=== PATIENT | female | born 1950 | race Caucasian/White ===

== ENCOUNTER 2019-09-25 18:17 | Inpatient (IN) | payer MEDICARE ==
[2019-09-25] MEDS ORDERED: Albuterol Nebulizer 2.5mg/3mL HHN PRN (23:03)
[2019-09-26] MEDS ORDERED: Pantoprazole 40 mg EC Tab PO SCH (09:00)
[2019-09-26] MEDS ORDERED: ESOMEPRAZOLE MAGNESIUM 20 MG PO SCH (09:00)
[2019-09-26] MEDS: Calcium Carb/Vit D 500 mg/200 U Tab PO SCH (17:26)
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
[2019-09-27] MEDS: Pantoprazole 40 mg EC Tab PO SCH (08:20)
[2019-09-27] MEDS: Calcium Carb/Vit D 500 mg/200 U Tab PO SCH ×2 (08:22→16:43)
[2019-09-27] MEDS: NYSTATIN 100000 UNITS/GM POWD TP SCH ×2 (09:36→16:51)
[2019-09-27] MEDS: Fluticasone Propionate Nasal 1 SPR SPR NS SCH (09:50)
--- NOTE | 2019-09-27 13:06 | Internal Medicine Prog Note ---
Internal Medicine Subjective - Subjective Patient seen and examined:: with staff, chart reviewed Patient is:: awake, verbal, interactive, in bed, denies any new complaints Patient Complaints of:: congestion Per staff patient has:: no adverse event, no episodes of fall, tolerating meds Internal Medicine Objective - Physical Exam Vitals and I&O: Vital Signs Temp 97.9 F 09/27/19 06:28 Pulse 98 09/27/19 06:28 Resp 20 09/27/19 06:28 BP 122/79 09/27/19 06:28 Pulse Ox 93 09/27/19 06:28 Intake & Output 09/26/19 09/27/19 09/27/19 18:59 06:59 18:59 Intake Total 900 160 Balance 900 160 Weight (lbs) 49.442 kg Intake: Oral 900 160 Other: # Voids 3 3 # Bowel Movements 1 0 Active Medications: Current Medications Acetaminophen (Tylenol) 650 mg PO Q4H PRN PRN Reason: Pain (Moderate 4-6) Stop: 11/25/19 14:38 Last Admin: 09/27/19 07:48 Dose: 650 mg Albuterol Sulfate (Albuterol 2.5mg/3ml Neb Ud) 2.5 mg HHN Q6HR PRN PRN Reason: Wheezing Stop: 11/24/19 23:02 Calcium Carbonate (Tums) 500 mg PO TID PRN PRN Reason: GI DISTRESS Stop: 11/25/19 20:59 Last Admin: 09/27/19 12:03 Dose: 500 mg Calcium/Vitamin D (Oscal W/Vitamin D) 1 tab PO BID [facility] Stop: 11/25/19 16:59 Last Admin: 09/27/19 08:22 Dose: 1 tab Fluticasone Propionate (Flonase) 2 spr NS DAILY EDDIE Stop: 11/26/19 08:59 Loratadine (Claritin) 10 mg PO DAILY EDDIE Stop: 11/25/19 08:59 Last Admin: 09/27/19 08:23 Dose: 10 mg Lorazepam (Ativan) 0.5 mg PO Q6HR PRN; Protocol PRN Reason: Agitation Stop: 11/24/19 23:02 Last Admin: 09/26/19 19:50 Dose: 0.5 mg Nystatin (Nystop) 100,000 units TP BID EDDIE Stop: 11/26/19 08:59 Last Admin: 09/27/19 09:36 Dose: 100,000 units Ondansetron HCl (Zofran Odt) 4 mg PO Q8HR PRN PRN Reason: Nausea Stop: 11/24/19 23:02 Last Admin: 09/26/19 10:45 Dose: 4 mg Pantoprazole Sodium (Protonix) 40 mg PO QDAC EDDIE Stop: 11/26/19 07:29 Last Admin: 09/27/19 08:20 Dose: 40 mg Paroxetine HCl (Paxil) 40 mg PO DAILY EDDIE; Protocol Stop: 11/25/19 08:59 Last Admin: 09/27/19 08:22 Dose: 40 mg Trazodone HCl (Desyrel) 100 mg PO HS EDDIE; Protocol Stop: 11/25/19 20:59 Last Admin: 09/26/19 21:50 Dose: 100 mg Zolpidem Tartrate (Ambien) 5 mg PO HS PRN PRN Reason: Insomnia Stop: 11/25/19 12:33 General: alert, obese HEENT: NC/AT, PERRLA, EOMI Neck: Supple, No JVD, No thyromegaly Lungs: CTAB Cardiovascular: RRR, Normal S1, Normal S2 Abdomen: soft, non-tender, globular, positive bowel sound Extremities: excoriation Neurological: no change Internal Medicine Assmt/Plan - Assessment Assessment: obesity gerd allergic rhinitis oa - Plan Plan: cont on adequate pain rx cont on ppi cont on histamine johanne cpm [facility]
[2019-09-27] MEDS: Menthol/Zinc Oxide Oint 113gm Tube TP PRN (16:52)
--- NOTE | 2019-09-28 00:10 | Progress Notes ---
DATE: 09/27/2019 PSYCHIATRIC PROGRESS NOTE SUBJECTIVE: Staff was spoken to. The patient is interviewed. Mood is noted to be depressed. Affect is constricted. The patient is isolative and withdrawn. The patient's insight and judgment are noted to be still impaired. Impulse control is noted to be limited. Coping skills are noted to be limited. The patient has been having difficult time to cope with the stress. No side effects to the medications are noted. The patient is currently on Paxil and has been able to tolerate the medication. ASSESSMENT: The patient is still depressed and suicidal. PLAN: To continue the patient with the current medications. I encouraged the patient to verbalize the concerns rather than to act out. [facility]# [id number]
[2019-09-28] MEDS: Pantoprazole 40 mg EC Tab PO SCH (06:51)
[2019-09-28] MEDS: Calcium Carb/Vit D 500 mg/200 U Tab PO SCH ×2 (08:57→16:11)
[2019-09-28] MEDS: NYSTATIN 100000 UNITS/GM POWD TP SCH ×2 (08:57→16:11)
[2019-09-28] MEDS: Fluticasone Propionate Nasal 1 SPR SPR NS SCH (08:58)
--- NOTE | 2019-09-28 15:54 | Internal Medicine Prog Note ---
Internal Medicine Subjective - Subjective Patient seen and examined:: with staff, chart reviewed Patient is:: awake, verbal, interactive, in bed, denies any new complaints Patient Complaints of:: congestion Per staff patient has:: no adverse event, no episodes of fall, tolerating meds Internal Medicine Objective - Physical Exam Vitals and I&O: Vital Signs Temp 97.8 F 09/28/19 15:17 Pulse 81 09/28/19 15:17 Resp 20 09/28/19 15:17 BP 137/75 09/28/19 15:17 Pulse Ox 94 09/28/19 15:17 Intake & Output 09/27/19 09/28/19 09/28/19 18:59 06:59 18:59 Intake Total 900 240 Balance 900 240 Intake: Oral 900 240 Other: # Voids 3 1 # Bowel Movements 1 Active Medications: Current Medications Acetaminophen (Tylenol) 650 mg PO Q4H PRN PRN Reason: Pain (Moderate 4-6) Stop: 11/25/19 14:38 Last Admin: 09/28/19 10:07 Dose: 650 mg Albuterol Sulfate (Albuterol 2.5mg/3ml Neb Ud) 2.5 mg HHN Q6HR PRN PRN Reason: Wheezing Stop: 11/24/19 23:02 Calamine/Phenol (Calmoseptine) 1 appl TP QID PRN PRN Reason: Skin Irritation Stop: 11/26/19 13:26 Last Admin: 09/27/19 16:52 Dose: 1 appl Calcium Carbonate (Tums) 500 mg PO TID PRN PRN Reason: GI DISTRESS Stop: 11/25/19 20:59 Last Admin: 09/27/19 12:03 Dose: 500 mg Calcium/Vitamin D (Oscal W/Vitamin D) 1 tab PO BID EDDIE Stop: 11/25/19 16:59 Last Admin: 09/28/19 08:57 Dose: 1 tab Fluticasone Propionate (Flonase) 2 spr NS DAILY EDDIE Stop: 11/26/19 08:59 Last Admin: 09/28/19 08:58 Dose: 2 spr Loratadine (Claritin) 10 mg PO DAILY EDDIE Stop: 11/25/19 08:59 Last Admin: 09/28/19 08:57 Dose: 10 mg Lorazepam (Ativan) 0.5 mg PO Q6HR PRN; Protocol PRN Reason: Agitation Stop: 11/24/19 23:02 Last Admin: 09/26/19 19:50 Dose: 0.5 mg Nystatin (Nystop) 100,000 units TP BID EDDIE Stop: 11/26/19 08:59 Last Admin: 09/28/19 08:57 Dose: 100,000 units Ondansetron HCl (Zofran Odt) 4 mg PO Q8HR PRN PRN Reason: Nausea Stop: 11/24/19 23:02 Last Admin: 09/26/19 10:45 Dose: 4 mg Pantoprazole Sodium (Protonix) 40 mg PO QDAC EDDIE Stop: 11/26/19 07:29 Last Admin: 09/28/19 06:51 Dose: 40 mg Paroxetine HCl (Paxil) 40 mg PO DAILY EDDIE; Protocol Stop: 11/25/19 08:59 Last Admin: 09/28/19 08:57 Dose: 40 mg Trazodone HCl (Desyrel) 100 mg PO HS EDDIE; Protocol Stop: 11/25/19 20:59 Last Admin: 09/27/19 22:10 Dose: 100 mg Zolpidem Tartrate (Ambien) 5 mg PO HS PRN PRN Reason: Insomnia Stop: 11/25/19 12:33 General: alert, obese HEENT: NC/AT, PERRLA, EOMI Neck: Supple, No JVD, No thyromegaly Lungs: CTAB Cardiovascular: RRR, Normal S1, Normal S2 Abdomen: soft, non-tender, globular, positive bowel sound Extremities: excoriation Neurological: no change Internal Medicine Assmt/Plan - Assessment Assessment: obesity gerd allergic rhinitis oa - Plan Plan: cont on adequate pain rx cont on ppi cont on histamine johanne cpm dw rn Nutritional Asmnt/Malnutr-PDOC - Dietary Evaluation Malnutrition Findings (Please click <Entered> for more info): Nutritional Asmnt/Malnutrition Start: 09/27/19 15: 12 Text: Status: Complete Freq: Protocol: Document 09/27/19 15:33 MAHIN (Rec: 09/27/19 15:35 MAHIN [id number]) Nutritional Asmnt/Malnutrition Patient General Information Nutritional Screening Low Risk Consult Diagnosis Psychosis Pertinent Medical Hx/Surgical Hx GERD, Allergic Rhinitis, Osteoarthritis, Asthma Subjective Information Consult: Intertrigo/Wound Gluteal Sulcus and Gluten Free Dietary Restrictions Pt is a 69-year-old female admitted on 09/25 d/t depression, suicidal ideations . Pt ate 100% meals 09/26. Visited pt around lunch and noticed she only drank her milk. Pt stated she was not hungry at lunch as she ate her breakfast late d/t medication issues and stomach upset. Pt stated she needed some antacids. Talked with pt regarding her dietary restrictions related to Gluten , she understood well, needed no further education. I informed her we made her some Gluten-Free sandwiches if she needed an extra snack between meals. Pt held conversation fine, stated she would eat when her stomach settled, she ate 75% breakfast. Per wound care note (09/27), Extrinsic factors that delay wound healing: Decreased mobility. Gluteal Sulcus Wound is not open, Intertrigo with erythema and moisture associated skin damage, present on admission. Open area has 100% dark pink tissue . Pt weight charted as 109 Lb, the pt looked heavier upon observation when I visited her today. Asked nurse to reweigh pt for accurate estimation of nutritional needs, pt refused, conscious of being overweight. I went in and spoke with pt, she stated she estimates she is around 190 Lbs based on most recent weight check. Will try to reweigh again when pt feels more comfortable. Anthropometrics (based on pt recollection) HT: 53 WT: 190 LB (86.36 kg) ABW: 135 LB (60.80 kg) BMI: 33.7 (Obese) GI/ Skin Integrity GI: WNL, Soft, Round BM: 09/26 x1 I/O: 1060/Not Noted Skin: Rash, Redness Ludwin: 20 Diet Order: Regular Allergy: Gluten Estimated Energy Needs: ( Geriatric, ABW) 9045-9295 kcals (20-25 kcals/ kg) 50-60g Pro (0.8-1.0 g/kg) 1677-6404 ml (20-25 ml/kg) Current Diet Order/ Nutrition Support Regular Patient / S.O Can Pertinent Medications Albuterol (PRN), tums, Oscal with Vitamin D, Zofran Odt ( PRN), Protonix Pertinent Labs 09/22: BUN/Cr 6/0.3, AST 32 Nutritional Hx/Data Height 1.6 m Height (Calculated Centimeters) 160.0 Current Weight (lbs) 86.183 kg Weight (Calculated Kilograms) 86.2 Weight (Calculated Grams) 38458.6 [place] Body Weight 115 LB (52.27 kg) % [place] Body Weight 165 Body Mass Index (BMI) 33.6 Weight Status Obese GI Symptoms Last BM 09/26 x1 Usual diet at home Regular Skin Integrity/Comment: Skin: Rash, Redness Ludwin: 20 Per wound care note (09/27), Extrinsic factors that delay wound healing: Decreased mobility. Gluteal Sulcus Wound is not open, Intertrigo with erythema and moisture associated skin damage, present on admission. Open area has 100% dark pink tissue . Current %PO Fair (50-74%) Estimated Nutritional Goals BEE in Kcals: Adj wt of IBW Calories/Kcals/Kg 20-25 Kcals Calculated 0635-7204 Protein: Adj wt of IBW Protein g/k.8-1.0 Protein Calculated 50-60 Fluid: ml 5313-4465 ml (20-25 ml/kg) Nutritional Problem 1. Problem Problem Obesity Etiology r/t consistent energy overconsumption Signs/Symptoms: aeb BMI 33.7 (pt recollection) . Malnutrition Related to Morbid Obesity Malnutrition related to morbid obesity No Intervention/Recommendation Comments Continue Regular diet as tolerated. Expected Outcomes/Goals Expected Outcomes/Goals 1.PO intake to meet 75% of estimated nutritional needs. 2.Monitor PO intake, wt, nutrition related labs, and skin integrity to trend WNL. 3.F/U as low risk in 7-10 days , 10/03-10/06
[2019-09-28] MEDS: Menthol/Zinc Oxide Oint 113gm Tube TP PRN (16:11)
--- NOTE | 2019-09-28 20:20 | Progress Notes ---
DATE: 09/28/2019 PSYCHIATRIC PROGRESS NOTE SUBJECTIVE: Staff was spoken to. The patient is interviewed. Mood is noted to be depressed. Affect is constricted. The patient's insight and judgment are noted to be improving. Impulse control seems to be fair. The patient, however, has been feeling frustrated. The patient is stating that she cannot deal with the depression. The patient has been having problem with the insomnia and is not able to tolerate the noise level. The patient's sleep is noted to be poor. Appetite is noted to be improving. No side effects to the medications are noted at this time. ASSESSMENT: The patient is still depressed. PLAN: To continue the patient with the supportive therapy, encouraged the patient to verbalize the concerns rather than to act out. The patient is going to be continued on her Paxil and Seroquel. JOB# [id number]
[2019-09-29] MEDS: Pantoprazole 40 mg EC Tab PO SCH (06:32)
[2019-09-29] MEDS: Calcium Carb/Vit D 500 mg/200 U Tab PO SCH ×2 (10:30→16:44)
[2019-09-29] MEDS: Fluticasone Propionate Nasal 1 SPR SPR NS SCH (10:31)
[2019-09-29] MEDS: NYSTATIN 100000 UNITS/GM POWD TP SCH ×2 (10:31→16:44)
--- NOTE | 2019-09-29 15:35 | Internal Medicine Prog Note ---
Internal Medicine Subjective - Subjective Patient seen and examined:: with staff, chart reviewed Patient is:: awake, verbal, interactive, in bed, denies any new complaints Patient Complaints of:: congestion Per staff patient has:: no adverse event, no episodes of fall, tolerating meds Internal Medicine Objective - Physical Exam Vitals and I&O: Vital Signs Temp 0 F 09/29/19 05:32 Pulse 78 09/28/19 20:31 Resp 16 09/29/19 08:00 BP 133/76 09/28/19 20:31 Pulse Ox 94 09/28/19 20:31 Intake & Output 09/28/19 09/29/19 09/29/19 18:59 06:59 18:59 Intake Total 900 120 Balance 900 120 Intake: Oral 900 120 Other: # Voids 3 3 # Bowel Movements 1 0 Active Medications: Current Medications Acetaminophen (Tylenol) 650 mg PO Q4H PRN PRN Reason: Pain (Moderate 4-6) Stop: 11/25/19 14:38 Last Admin: 09/28/19 10:07 Dose: 650 mg Albuterol Sulfate (Albuterol 2.5mg/3ml Neb Ud) 2.5 mg HHN Q6HR PRN PRN Reason: Wheezing Stop: 11/24/19 23:02 Calamine/Phenol (Calmoseptine) 1 appl TP QID PRN PRN Reason: Skin Irritation Stop: 11/26/19 13:26 Last Admin: 09/28/19 16:11 Dose: 1 appl Calcium Carbonate (Tums) 500 mg PO TID PRN PRN Reason: GI DISTRESS Stop: 11/25/19 20:59 Last Admin: 09/27/19 12:03 Dose: 500 mg Calcium/Vitamin D (Oscal W/Vitamin D) 1 tab PO BID EDDIE Stop: 11/25/19 16:59 Last Admin: 09/29/19 10:30 Dose: 1 tab Fluticasone Propionate (Flonase) 2 spr NS DAILY EDDIE Stop: 11/26/19 08:59 Last Admin: 09/29/19 10:31 Dose: 2 spr Loratadine (Claritin) 10 mg PO DAILY EDDIE Stop: 11/25/19 08:59 Last Admin: 09/29/19 10:29 Dose: 10 mg Lorazepam (Ativan) 0.5 mg PO Q6HR PRN; Protocol PRN Reason: Agitation Stop: 11/24/19 23:02 Last Admin: 09/28/19 21:31 Dose: 0.5 mg Nystatin (Nystop) 100,000 units TP BID EDDIE Stop: 11/26/19 08:59 Last Admin: 09/29/19 10:31 Dose: 100,000 units Ondansetron HCl (Zofran Odt) 4 mg PO Q8HR PRN PRN Reason: Nausea Stop: 11/24/19 23:02 Last Admin: 09/26/19 10:45 Dose: 4 mg Pantoprazole Sodium (Protonix) 40 mg PO QDAC EDDIE Stop: 11/26/19 07:29 Last Admin: 09/29/19 06:32 Dose: 40 mg Paroxetine HCl (Paxil) 40 mg PO DAILY EDDIE; Protocol Stop: 11/25/19 08:59 Last Admin: 09/29/19 10:29 Dose: 40 mg Trazodone HCl (Desyrel) 100 mg PO HS EDDIE; Protocol Stop: 11/25/19 20:59 Last Admin: 09/28/19 20:40 Dose: 100 mg Zolpidem Tartrate (Ambien) 5 mg PO HS PRN PRN Reason: Insomnia Stop: 11/25/19 12:33 General: alert, obese HEENT: NC/AT, PERRLA, EOMI Neck: Supple, No JVD, No thyromegaly Lungs: CTAB Cardiovascular: RRR, Normal S1, Normal S2 Abdomen: soft, non-tender, globular, positive bowel sound Extremities: excoriation Neurological: no change Internal Medicine Assmt/Plan - Assessment Assessment: obesity gerd allergic rhinitis oa - Plan Plan: cont on adequate pain rx cont on ppi cont on histamine johanne cpm dw rn Nutritional Asmnt/Malnutr-PDOC - Dietary Evaluation Malnutrition Findings (Please click <Entered> for more info): Nutritional Asmnt/Malnutrition Start: 09/27/19 15: 12 Text: Status: Complete Freq: Protocol: Document 09/27/19 15:33 MAHIN (Rec: 09/27/19 15:35 MAHIN [id number]) Nutritional Asmnt/Malnutrition Patient General Information Nutritional Screening Low Risk Consult Diagnosis Psychosis Pertinent Medical Hx/Surgical Hx GERD, Allergic Rhinitis, Osteoarthritis, Asthma Subjective Information Consult: Intertrigo/Wound Gluteal Sulcus and Gluten Free Dietary Restrictions Pt is a 69-year-old female admitted on 09/25 d/t depression, suicidal ideations . Pt ate 100% meals 09/26. Visited pt around lunch and noticed she only drank her milk. Pt stated she was not hungry at lunch as she ate her breakfast late d/t medication issues and stomach upset. Pt stated she needed some antacids. Talked with pt regarding her dietary restrictions related to Gluten , she understood well, needed no further education. I informed her we made her some Gluten-Free sandwiches if she needed an extra snack between meals. Pt held conversation fine, stated she would eat when her stomach settled, she ate 75% breakfast. Per wound care note (09/27), Extrinsic factors that delay wound healing: Decreased mobility. Gluteal Sulcus Wound is not open, Intertrigo with erythema and moisture associated skin damage, present on admission. Open area has 100% dark pink tissue . Pt weight charted as 109 Lb, the pt looked heavier upon observation when I visited her today. Asked nurse to reweigh pt for accurate estimation of nutritional needs, pt refused, conscious of being overweight. I went in and spoke with pt, she stated she estimates she is around 190 Lbs based on most recent weight check. Will try to reweigh again when pt feels more comfortable. Anthropometrics (based on pt recollection) HT: 53 WT: 190 LB (86.36 kg) ABW: 135 LB (60.80 kg) BMI: 33.7 (Obese) GI/ Skin Integrity GI: WNL, Soft, Round BM: 09/26 x1 I/O: 1060/Not Noted Skin: Rash, Redness Ludwin: 20 Diet Order: Regular Allergy: Gluten Estimated Energy Needs: ( Geriatric, ABW) 9220-1630 kcals (20-25 kcals/ kg) 50-60g Pro (0.8-1.0 g/kg) 1117-2577 ml (20-25 ml/kg) Current Diet Order/ Nutrition Support Regular Patient / S.O Can Pertinent Medications Albuterol (PRN), tums, Oscal with Vitamin D, Zofran Odt ( PRN), Protonix Pertinent Labs 09/22: BUN/Cr 6/0.3, AST 32 Nutritional Hx/Data Height 1.6 m Height (Calculated Centimeters) 160.0 Current Weight (lbs) 86.183 kg Weight (Calculated Kilograms) 86.2 Weight (Calculated Grams) 48479.6 [place] Body Weight 115 LB (52.27 kg) % [place] Body Weight 165 Body Mass Index (BMI) 33.6 Weight Status Obese GI Symptoms Last BM 09/26 x1 Usual diet at home Regular Skin Integrity/Comment: Skin: Rash, Redness Ludwin: 20 Per wound care note (09/27), Extrinsic factors that delay wound healing: Decreased mobility. Gluteal Sulcus Wound is not open, Intertrigo with erythema and moisture associated skin damage, present on admission. Open area has 100% dark pink tissue . Current %PO Fair (50-74%) Estimated Nutritional Goals BEE in Kcals: Adj wt of IBW Calories/Kcals/Kg 20-25 Kcals Calculated 7469-8697 Protein: Adj wt of IBW Protein g/k.8-1.0 Protein Calculated 50-60 Fluid: ml 0811-3792 ml (20-25 ml/kg) Nutritional Problem 1. Problem Problem Obesity Etiology r/t consistent energy overconsumption Signs/Symptoms: aeb BMI 33.7 (pt recollection) . Malnutrition Related to Morbid Obesity Malnutrition related to morbid obesity No Intervention/Recommendation Comments Continue Regular diet as tolerated. Expected Outcomes/Goals Expected Outcomes/Goals 1.PO intake to meet 75% of estimated nutritional needs. 2.Monitor PO intake, wt, nutrition related labs, and skin integrity to trend WNL. 3.F/U as low risk in 7-10 days , 10/03-10/06
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
[2019-09-30] MEDS: Pantoprazole 40 mg EC Tab PO SCH (06:51)
[2019-09-30] MEDS: Fluticasone Propionate Nasal 1 SPR SPR NS SCH (09:01)
[2019-09-30] MEDS: Calcium Carb/Vit D 500 mg/200 U Tab PO SCH ×2 (09:01→17:33)
[2019-09-30] MEDS: Menthol/Zinc Oxide Oint 113gm Tube TP PRN (09:01)
[2019-09-30] MEDS: NYSTATIN 100000 UNITS/GM POWD TP SCH ×2 (09:02→17:33)
--- NOTE | 2019-09-30 13:05 | Internal Medicine Prog Note ---
Internal Medicine Subjective - Subjective Patient seen and examined:: with staff, chart reviewed Patient is:: awake, verbal, interactive, in bed, denies any new complaints Patient Complaints of:: congestion Per staff patient has:: no adverse event, no episodes of fall, tolerating meds Internal Medicine Objective - Physical Exam Vitals and I&O: Vital Signs Temp 97.9 F 09/29/19 20:00 Pulse 76 09/29/19 20:00 Resp 16 09/29/19 20:00 BP 129/75 09/29/19 20:00 Pulse Ox 92 09/29/19 20:00 Intake & Output 09/29/19 09/30/19 09/30/19 18:59 06:59 18:59 Intake Total 900 160 Balance 900 160 Intake: Oral 900 160 Other: # Voids 3 2 # Bowel Movements 1 0 Active Medications: Current Medications Acetaminophen (Tylenol) 650 mg PO Q4H PRN PRN Reason: Pain (Moderate 4-6) Stop: 11/25/19 14:38 Last Admin: 09/29/19 16:58 Dose: 650 mg Albuterol Sulfate (Albuterol 2.5mg/3ml Neb Ud) 2.5 mg HHN Q6HR PRN PRN Reason: Wheezing Stop: 11/24/19 23:02 Calamine/Phenol (Calmoseptine) 1 appl TP QID PRN PRN Reason: Skin Irritation Stop: 11/26/19 13:26 Last Admin: 09/30/19 09:01 Dose: 1 appl Calcium Carbonate (Tums) 500 mg PO TID PRN PRN Reason: GI DISTRESS Stop: 11/25/19 20:59 Last Admin: 09/27/19 12:03 Dose: 500 mg Calcium/Vitamin D (Oscal W/Vitamin D) 1 tab PO BID EDDIE Stop: 11/25/19 16:59 Last Admin: 09/30/19 09:01 Dose: 1 tab Fluticasone Propionate (Flonase) 2 spr NS DAILY EDDIE Stop: 11/26/19 08:59 Last Admin: 09/30/19 09:01 Dose: 2 spr Loratadine (Claritin) 10 mg PO DAILY EDDIE Stop: 11/25/19 08:59 Last Admin: 09/30/19 09:01 Dose: 10 mg Lorazepam (Ativan) 0.5 mg PO Q6HR PRN; Protocol PRN Reason: Agitation Stop: 11/24/19 23:02 Last Admin: 09/29/19 16:58 Dose: 0.5 mg Nystatin (Nystop) 100,000 units TP BID EDDIE Stop: 11/26/19 08:59 Last Admin: 09/30/19 09:02 Dose: 100,000 units Ondansetron HCl (Zofran Odt) 4 mg PO Q8HR PRN PRN Reason: Nausea Stop: 11/24/19 23:02 Last Admin: 09/26/19 10:45 Dose: 4 mg Pantoprazole Sodium (Protonix) 40 mg PO QDAC EDDIE Stop: 11/26/19 07:29 Last Admin: 09/30/19 06:51 Dose: 40 mg Paroxetine HCl (Paxil) 40 mg PO DAILY [facility]; Protocol Stop: 11/25/19 08:59 Last Admin: 09/30/19 09:01 Dose: 40 mg Trazodone HCl (Desyrel) 100 mg PO HS EDDIE; Protocol Stop: 11/25/19 20:59 Last Admin: 09/29/19 21:44 Dose: 100 mg Zolpidem Tartrate (Ambien) 5 mg PO HS PRN PRN Reason: Insomnia Stop: 11/25/19 12:33 General: alert, obese HEENT: NC/AT, PERRLA, EOMI Neck: Supple, No JVD, No thyromegaly Lungs: CTAB Cardiovascular: RRR, Normal S1, Normal S2 Abdomen: soft, non-tender, globular, positive bowel sound Extremities: excoriation Neurological: no change Internal Medicine Assmt/Plan - Assessment Assessment: obesity gerd allergic rhinitis oa - Plan Plan: cont on adequate pain rx cont on ppi cont on histamine johanne cpm dw rn Nutritional Asmnt/Malnutr-PDOC - Dietary Evaluation Malnutrition Findings (Please click <Entered> for more info): Nutritional Asmnt/Malnutrition Start: 09/27/19 15: 12 Text: Status: Complete Freq: Protocol: Document 09/27/19 15:33 MAHIN (Rec: 09/27/19 15:35 [email or web address] [id number]) Nutritional Asmnt/Malnutrition Patient General Information Nutritional Screening Low Risk Consult Diagnosis Psychosis Pertinent Medical Hx/Surgical Hx GERD, Allergic Rhinitis, Osteoarthritis, Asthma Subjective Information Consult: Intertrigo/Wound Gluteal Sulcus and Gluten Free Dietary Restrictions Pt is a 69-year-old female admitted on 09/25 d/t depression, suicidal ideations . Pt ate 100% meals 09/26. Visited pt around lunch and noticed she only drank her milk. Pt stated she was not hungry at lunch as she ate her breakfast late d/t medication issues and stomach upset. Pt stated she needed some antacids. Talked with pt regarding her dietary restrictions related to Gluten , she understood well, needed no further education. I informed her we made her some Gluten-Free sandwiches if she needed an extra snack between meals. Pt held conversation fine, stated she would eat when her stomach settled, she ate 75% breakfast. Per wound care note (09/27), Extrinsic factors that delay wound healing: Decreased mobility. Gluteal Sulcus Wound is not open, Intertrigo with erythema and moisture associated skin damage, present on admission. Open area has 100% dark pink tissue . Pt weight charted as 109 Lb, the pt looked heavier upon observation when I visited her today. Asked nurse to reweigh pt for accurate estimation of nutritional needs, pt refused, conscious of being overweight. I went in and spoke with pt, she stated she estimates she is around 190 Lbs based on most recent weight check. Will try to reweigh again when pt feels more comfortable. Anthropometrics (based on pt recollection) HT: 53 WT: 190 LB (86.36 kg) ABW: 135 LB (60.80 kg) BMI: 33.7 (Obese) GI/ Skin Integrity GI: WNL, Soft, Round BM: 09/26 x1 I/O: 1060/Not Noted Skin: Rash, Redness Ludwin: 20 Diet Order: Regular Allergy: Gluten Estimated Energy Needs: ( Geriatric, ABW) 5546-1087 kcals (20-25 kcals/ kg) 50-60g Pro (0.8-1.0 g/kg) 2054-5475 ml (20-25 ml/kg) Current Diet Order/ Nutrition Support Regular Patient / S.O Can Pertinent Medications Albuterol (PRN), tums, Oscal with Vitamin D, Zofran Odt ( PRN), Protonix Pertinent Labs 09/22: BUN/Cr 6/0.3, AST 32 Nutritional Hx/Data Height 1.6 m Height (Calculated Centimeters) 160.0 Current Weight (lbs) 86.183 kg Weight (Calculated Kilograms) 86.2 Weight (Calculated Grams) 71029.6 [place] Body Weight 115 LB (52.27 kg) % [place] Body Weight 165 Body Mass Index (BMI) 33.6 Weight Status Obese GI Symptoms Last BM 09/26 x1 Usual diet at home Regular Skin Integrity/Comment: Skin: Rash, Redness Ludwin: 20 Per wound care note (09/27), Extrinsic factors that delay wound healing: Decreased mobility. Gluteal Sulcus Wound is not open, Intertrigo with erythema and moisture associated skin damage, present on admission. Open area has 100% dark pink tissue . Current %PO Fair (50-74%) Estimated Nutritional Goals BEE in Kcals: Adj wt of IBW Calories/Kcals/Kg 20-25 Kcals Calculated 6963-2177 Protein: Adj wt of IBW Protein g/k.8-1.0 Protein Calculated 50-60 Fluid: ml 6803-6145 ml (20-25 ml/kg) Nutritional Problem 1. Problem Problem Obesity Etiology r/t consistent energy overconsumption Signs/Symptoms: aeb BMI 33.7 (pt recollection) . Malnutrition Related to Morbid Obesity Malnutrition related to morbid obesity No Intervention/Recommendation Comments Continue Regular diet as tolerated. Expected Outcomes/Goals Expected Outcomes/Goals 1.PO intake to meet 75% of estimated nutritional needs. 2.Monitor PO intake, wt, nutrition related labs, and skin integrity to trend WNL. 3.F/U as low risk in 7-10 days , 10/03-10/06
--- NOTE | 2019-10-01 03:33 | Progress Notes ---
DATE: 09/30/2019 SUBJECTIVE: Staff was spoken to. The patient is interviewed. Mood is noted to be irritable. Affect is constricted. The patient is still isolative and withdrawn. The patient is stating that she is frustrated with the noise level and the noise is making her to have PTSD. The patient is stating that she does not like the light when she is sleeping and that the other people are putting it on. The patient has been having difficult time to cope with the stress. Insight and judgment at this time are noted to be still impaired. Coping skills are noted to be very poor. The patient have been concerns with regards to trazodone and Ambien and the patient is currently on 100 mg of the trazodone. Plan to continue the same and discontinue the Ambien. The patient has been stating that she needs to be in a single room and she wants closer to [place]. ASSESSMENT: The patient is still depressed, suicidal ideation is resolving. PLAN: To continue the patient with the supportive therapy, encouraged the patient to verbalize the concerns rather than to act out. JOB# [id number]
[2019-10-01] MEDS: Pantoprazole 40 mg EC Tab PO SCH (06:48)
[2019-10-01] MEDS: NYSTATIN 100000 UNITS/GM POWD TP SCH ×2 (09:46→17:12)
[2019-10-01] MEDS: Fluticasone Propionate Nasal 1 SPR SPR NS SCH (09:46)
[2019-10-01] MEDS: Calcium Carb/Vit D 500 mg/200 U Tab PO SCH ×2 (09:46→17:12)
--- NOTE | 2019-10-01 14:53 | Internal Medicine Prog Note ---
Internal Medicine Subjective - Subjective Patient seen and examined:: with staff, chart reviewed Patient is:: awake, verbal, interactive, in bed, denies any new complaints Patient Complaints of:: congestion Per staff patient has:: no adverse event, no episodes of fall, tolerating meds Internal Medicine Objective - Physical Exam Vitals and I&O: Vital Signs Temp 97.2 F 10/01/19 14:00 Pulse 79 10/01/19 14:00 Resp 20 10/01/19 14:00 BP 130/78 10/01/19 14:00 Pulse Ox 94 10/01/19 14:00 Intake & Output 09/30/19 10/01/19 10/01/19 18:59 06:59 18:59 Intake Total 1200 120 Balance 1200 120 Intake: Oral 1200 120 Other: # Voids 4 2 # Bowel Movements 1 Active Medications: Current Medications Acetaminophen (Tylenol) 650 mg PO Q4H PRN PRN Reason: Pain (Moderate 4-6) Stop: 11/25/19 14:38 Last Admin: 09/30/19 14:39 Dose: 650 mg Albuterol Sulfate (Albuterol 2.5mg/3ml Neb Ud) 2.5 mg HHN Q6HR PRN PRN Reason: Wheezing Stop: 11/24/19 23:02 Calamine/Phenol (Calmoseptine) 1 appl TP QID PRN PRN Reason: Skin Irritation Stop: 11/26/19 13:26 Last Admin: 09/30/19 09:01 Dose: 1 appl Calcium Carbonate (Tums) 500 mg PO TID PRN PRN Reason: GI DISTRESS Stop: 11/25/19 20:59 Last Admin: 09/27/19 12:03 Dose: 500 mg Calcium/Vitamin D (Oscal W/Vitamin D) 1 tab PO BID EDDIE Stop: 11/25/19 16:59 Last Admin: 10/01/19 09:46 Dose: 1 tab Fluticasone Propionate (Flonase) 2 spr NS DAILY EDDIE Stop: 11/26/19 08:59 Last Admin: 10/01/19 09:46 Dose: 2 spr Hydrocortisone (Hydrocortisone 1%) 1 appl TP DAILY EDDIE Stop: 11/30/19 08:59 Last Admin: 10/01/19 09:46 Dose: 1 appl Loratadine (Claritin) 10 mg PO DAILY EDDIE Stop: 11/25/19 08:59 Last Admin: 10/01/19 09:47 Dose: 10 mg Lorazepam (Ativan) 0.5 mg PO Q6HR PRN; Protocol PRN Reason: Agitation Stop: 11/24/19 23:02 Last Admin: 09/29/19 16:58 Dose: 0.5 mg Nystatin (Nystop) 100,000 units TP BID EDDIE Stop: 11/26/19 08:59 Last Admin: 10/01/19 09:46 Dose: 100,000 units Ondansetron HCl (Zofran Odt) 4 mg PO Q8HR PRN PRN Reason: Nausea Stop: 11/24/19 23:02 Last Admin: 10/01/19 09:58 Dose: 4 mg Pantoprazole Sodium (Protonix) 40 mg PO QDAC EDDIE Stop: 11/26/19 07:29 Last Admin: 10/01/19 06:48 Dose: 40 mg Paroxetine HCl (Paxil) 40 mg PO DAILY EDDIE; Protocol Stop: 11/25/19 08:59 Last Admin: 10/01/19 09:46 Dose: 40 mg Trazodone HCl (Desyrel) 100 mg PO HS EDDIE; Protocol Stop: 11/25/19 20:59 Last Admin: 09/30/19 21:59 Dose: 100 mg General: alert, obese HEENT: NC/AT, PERRLA, EOMI Neck: Supple, No JVD, No thyromegaly Lungs: CTAB Cardiovascular: RRR, Normal S1, Normal S2 Abdomen: soft, non-tender, globular, positive bowel sound Extremities: excoriation Neurological: no change Internal Medicine Assmt/Plan - Assessment Assessment: obesity gerd allergic rhinitis oa - Plan Plan: cont on adequate pain rx cont on ppi cont on histamine johanne cpm dw rn Nutritional Asmnt/Malnutr-PDOC - Dietary Evaluation Malnutrition Findings (Please click <Entered> for more info): Nutritional Asmnt/Malnutrition Start: 09/27/19 15: 12 Text: Status: Complete Freq: Protocol: Document 09/27/19 15:33 [email or web address] (Rec: 09/27/19 15:35 [email or web address] [id number]) Nutritional Asmnt/Malnutrition Patient General Information Nutritional Screening Low Risk Consult Diagnosis Psychosis Pertinent Medical Hx/Surgical Hx GERD, Allergic Rhinitis, Osteoarthritis, Asthma Subjective Information Consult: Intertrigo/Wound Gluteal Sulcus and Gluten Free Dietary Restrictions Pt is a 69-year-old female admitted on 09/25 d/t depression, suicidal ideations . Pt ate 100% meals 09/26. Visited pt around lunch and noticed she only drank her milk. Pt stated she was not hungry at lunch as she ate her breakfast late d/t medication issues and stomach upset. Pt stated she needed some antacids. Talked with pt regarding her dietary restrictions related to Gluten , she understood well, needed no further education. I informed her we made her some Gluten-Free sandwiches if she needed an extra snack between meals. Pt held conversation fine, stated she would eat when her stomach settled, she ate 75% breakfast. Per wound care note (09/27), Extrinsic factors that delay wound healing: Decreased mobility. Gluteal Sulcus Wound is not open, Intertrigo with erythema and moisture associated skin damage, present on admission. Open area has 100% dark pink tissue . Pt weight charted as 109 Lb, the pt looked heavier upon observation when I visited her today. Asked nurse to reweigh pt for accurate estimation of nutritional needs, pt refused, conscious of being overweight. I went in and spoke with pt, she stated she estimates she is around 190 Lbs based on most recent weight check. Will try to reweigh again when pt feels more comfortable. Anthropometrics (based on pt recollection) HT: 53 WT: 190 LB (86.36 kg) ABW: 135 LB (60.80 kg) BMI: 33.7 (Obese) GI/ Skin Integrity GI: WNL, Soft, Round BM: 09/26 x1 I/O: 1060/Not Noted Skin: Rash, Redness Ludwin: 20 Diet Order: Regular Allergy: Gluten Estimated Energy Needs: ( Geriatric, ABW) 1049-4691 kcals (20-25 kcals/ kg) 50-60g Pro (0.8-1.0 g/kg) 7121-8817 ml (20-25 ml/kg) Current Diet Order/ Nutrition Support Regular Patient / S.O Can Pertinent Medications Albuterol (PRN), tums, Oscal with Vitamin D, Zofran Odt ( PRN), Protonix Pertinent Labs 09/22: BUN/Cr 6/0.3, AST 32 Nutritional Hx/Data Height 1.6 m Height (Calculated Centimeters) 160.0 Current Weight (lbs) 86.183 kg Weight (Calculated Kilograms) 86.2 Weight (Calculated Grams) 61334.6 [place] Body Weight 115 LB (52.27 kg) % [place] Body Weight 165 Body Mass Index (BMI) 33.6 Weight Status Obese GI Symptoms Last BM 09/26 x1 Usual diet at home Regular Skin Integrity/Comment: Skin: Rash, Redness Ludwin: 20 Per wound care note (09/27), Extrinsic factors that delay wound healing: Decreased mobility. Gluteal Sulcus Wound is not open, Intertrigo with erythema and moisture associated skin damage, present on admission. Open area has 100% dark pink tissue . Current %PO Fair (50-74%) Estimated Nutritional Goals BEE in Kcals: Adj wt of IBW Calories/Kcals/Kg 20-25 Kcals Calculated 0245-1891 Protein: Adj wt of IBW Protein g/k.8-1.0 Protein Calculated 50-60 Fluid: ml 2931-0778 ml (20-25 ml/kg) Nutritional Problem 1. Problem Problem Obesity Etiology r/t consistent energy overconsumption Signs/Symptoms: aeb BMI 33.7 (pt recollection) . Malnutrition Related to Morbid Obesity Malnutrition related to morbid obesity No Intervention/Recommendation Comments Continue Regular diet as tolerated. Expected Outcomes/Goals Expected Outcomes/Goals 1.PO intake to meet 75% of estimated nutritional needs. 2.Monitor PO intake, wt, nutrition related labs, and skin integrity to trend WNL. 3.F/U as low risk in 7-10 days , 10/03-10/06
[2019-10-02] MEDS: Pantoprazole 40 mg EC Tab PO SCH (06:52)
--- NOTE | 2019-10-02 08:53 | Progress Notes ---
DATE: 10/01/2019 SUBJECTIVE: Staff was spoken to. The patient is interviewed. Mood is noted to be irritable. Affect is constricted. The patient is still isolative and withdrawn. The patient is stating that she is still having the PTSD symptoms and having depression. Coping skills at this time are noted to be still poor. The patient's sleep is noted to be a little bit improving compared to the other days. The patient is stating that she was able to sleep a little bit last night. The patient is stating that the noises of one that she could not tolerate. The patient has been so far compliant with the Paxil and Seroquel. No side effects to the medications are noted. The patient has been able to verbalize the concerns, but the patient's participation in the groups seems to be minimal. ASSESSMENT: The patient is still depressed. PLAN: To continue the patient with the supportive therapy, I encouraged the patient to verbalize the concerns rather than to act out. [facility]# [id number]
[2019-10-02] MEDS: Calcium Carb/Vit D 500 mg/200 U Tab PO SCH ×2 (09:30→17:12)
[2019-10-02] MEDS: Fluticasone Propionate Nasal 1 SPR SPR NS SCH (09:30)
[2019-10-02] MEDS: NYSTATIN 100000 UNITS/GM POWD TP SCH ×2 (09:30→17:12)
--- NOTE | 2019-10-02 09:49 | Internal Medicine Prog Note ---
Internal Medicine Subjective - Subjective Patient seen and examined:: with staff, chart reviewed Patient is:: awake, verbal, interactive, in bed, denies any new complaints Patient Complaints of:: congestion Per staff patient has:: no adverse event, no episodes of fall, tolerating meds Internal Medicine Objective - Physical Exam Vitals and I&O: Vital Signs Temp 97.9 F 10/01/19 20:05 Pulse 76 10/01/19 20:05 Resp 20 10/01/19 20:05 BP 130/73 10/01/19 20:05 Pulse Ox 92 10/01/19 20:05 Intake & Output 10/01/19 10/02/19 10/02/19 18:59 06:59 18:59 Intake Total 220 Balance 220 Intake: Oral 220 Other: # Voids 1 # Bowel Movements 0 Active Medications: Current Medications Acetaminophen (Tylenol) 650 mg PO Q4H PRN PRN Reason: Pain (Moderate 4-6) Stop: 11/25/19 14:38 Last Admin: 10/01/19 15:27 Dose: 650 mg Albuterol Sulfate (Albuterol 2.5mg/3ml Neb Ud) 2.5 mg HHN Q6HR PRN PRN Reason: Wheezing Stop: 11/24/19 23:02 Calamine/Phenol (Calmoseptine) 1 appl TP QID PRN PRN Reason: Skin Irritation Stop: 11/26/19 13:26 Last Admin: 09/30/19 09:01 Dose: 1 appl Calcium Carbonate (Tums) 500 mg PO TID PRN PRN Reason: GI DISTRESS Stop: 11/25/19 20:59 Last Admin: 09/27/19 12:03 Dose: 500 mg Calcium/Vitamin D (Oscal W/Vitamin D) 1 tab PO BID EDDIE Stop: 11/25/19 16:59 Last Admin: 10/02/19 09:30 Dose: 1 tab Fluticasone Propionate (Flonase) 2 spr NS DAILY EDDIE Stop: 11/26/19 08:59 Last Admin: 10/02/19 09:30 Dose: 2 spr Hydrocortisone (Hydrocortisone 1%) 1 appl TP DAILY EDDIE Stop: 11/30/19 08:59 Last Admin: 10/02/19 09:30 Dose: 1 appl Loratadine (Claritin) 10 mg PO DAILY EDDIE Stop: 11/25/19 08:59 Last Admin: 10/02/19 09:30 Dose: 10 mg Lorazepam (Ativan) 0.5 mg PO Q6HR PRN; Protocol PRN Reason: Agitation Stop: 11/24/19 23:02 Last Admin: 09/29/19 16:58 Dose: 0.5 mg Nystatin (Nystop) 100,000 units TP BID EDDIE Stop: 11/26/19 08:59 Last Admin: 10/02/19 09:30 Dose: 100,000 units Ondansetron HCl (Zofran Odt) 4 mg PO Q8HR PRN PRN Reason: Nausea Stop: 11/24/19 23:02 Last Admin: 10/01/19 09:58 Dose: 4 mg Pantoprazole Sodium (Protonix) 40 mg PO QDAC EDDIE Stop: 11/26/19 07:29 Last Admin: 10/02/19 06:52 Dose: 40 mg Paroxetine HCl (Paxil) 40 mg PO DAILY [facility]; Protocol Stop: 11/25/19 08:59 Last Admin: 10/02/19 09:30 Dose: 40 mg Trazodone HCl (Desyrel) 100 mg PO HS EDDIE; Protocol Stop: 11/25/19 20:59 Last Admin: 10/01/19 21:56 Dose: 100 mg General: alert, obese HEENT: NC/AT, PERRLA, EOMI Neck: Supple, No JVD, No thyromegaly Lungs: CTAB Cardiovascular: RRR, Normal S1, Normal S2 Abdomen: soft, non-tender, globular, positive bowel sound Extremities: excoriation Neurological: no change Internal Medicine Assmt/Plan - Assessment Assessment: obesity gerd allergic rhinitis oa - Plan Plan: cont on adequate pain rx cont on ppi cont on histamine johanne cpm dw rn Nutritional Asmnt/Malnutr-PDOC - Dietary Evaluation Malnutrition Findings (Please click <Entered> for more info): Nutritional Asmnt/Malnutrition Start: 09/27/19 15: 12 Text: Status: Complete Freq: Protocol: Document 09/27/19 15:33 CLARKEMUS (Rec: 09/27/19 15:35 MAHIN [id number]) Nutritional Asmnt/Malnutrition Patient General Information Nutritional Screening Low Risk Consult Diagnosis Psychosis Pertinent Medical Hx/Surgical Hx GERD, Allergic Rhinitis, Osteoarthritis, Asthma Subjective Information Consult: Intertrigo/Wound Gluteal Sulcus and Gluten Free Dietary Restrictions Pt is a 69-year-old female admitted on 09/25 d/t depression, suicidal ideations . Pt ate 100% meals 09/26. Visited pt around lunch and noticed she only drank her milk. Pt stated she was not hungry at lunch as she ate her breakfast late d/t medication issues and stomach upset. Pt stated she needed some antacids. Talked with pt regarding her dietary restrictions related to Gluten , she understood well, needed no further education. I informed her we made her some Gluten-Free sandwiches if she needed an extra snack between meals. Pt held conversation fine, stated she would eat when her stomach settled, she ate 75% breakfast. Per wound care note (09/27), Extrinsic factors that delay wound healing: Decreased mobility. Gluteal Sulcus Wound is not open, Intertrigo with erythema and moisture associated skin damage, present on admission. Open area has 100% dark pink tissue . Pt weight charted as 109 Lb, the pt looked heavier upon observation when I visited her today. Asked nurse to reweigh pt for accurate estimation of nutritional needs, pt refused, conscious of being overweight. I went in and spoke with pt, she stated she estimates she is around 190 Lbs based on most recent weight check. Will try to reweigh again when pt feels more comfortable. Anthropometrics (based on pt recollection) HT: 53 WT: 190 LB (86.36 kg) ABW: 135 LB (60.80 kg) BMI: 33.7 (Obese) GI/ Skin Integrity GI: WNL, Soft, Round BM: 09/26 x1 I/O: 1060/Not Noted Skin: Rash, Redness Ludwin: 20 Diet Order: Regular Allergy: Gluten Estimated Energy Needs: ( Geriatric, ABW) 0357-5857 kcals (20-25 kcals/ kg) 50-60g Pro (0.8-1.0 g/kg) 1759-4125 ml (20-25 ml/kg) Current Diet Order/ Nutrition Support Regular Patient / S.O Can Pertinent Medications Albuterol (PRN), tums, Oscal with Vitamin D, Zofran Odt ( PRN), Protonix Pertinent Labs 09/22: BUN/Cr 6/0.3, AST 32 Nutritional Hx/Data Height 1.6 m Height (Calculated Centimeters) 160.0 Current Weight (lbs) 86.183 kg Weight (Calculated Kilograms) 86.2 Weight (Calculated Grams) 28767.6 [place] Body Weight 115 LB (52.27 kg) % [place] Body Weight 165 Body Mass Index (BMI) 33.6 Weight Status Obese GI Symptoms Last BM 09/26 x1 Usual diet at home Regular Skin Integrity/Comment: Skin: Rash, Redness Ludwin: 20 Per wound care note (09/27), Extrinsic factors that delay wound healing: Decreased mobility. Gluteal Sulcus Wound is not open, Intertrigo with erythema and moisture associated skin damage, present on admission. Open area has 100% dark pink tissue . Current %PO Fair (50-74%) Estimated Nutritional Goals BEE in Kcals: Adj wt of IBW Calories/Kcals/Kg 20-25 Kcals Calculated 8651-9147 Protein: Adj wt of IBW Protein g/k.8-1.0 Protein Calculated 50-60 Fluid: ml 8742-1441 ml (20-25 ml/kg) Nutritional Problem 1. Problem Problem Obesity Etiology r/t consistent energy overconsumption Signs/Symptoms: aeb BMI 33.7 (pt recollection) . Malnutrition Related to Morbid Obesity Malnutrition related to morbid obesity No Intervention/Recommendation Comments Continue Regular diet as tolerated. Expected Outcomes/Goals Expected Outcomes/Goals 1.PO intake to meet 75% of estimated nutritional needs. 2.Monitor PO intake, wt, nutrition related labs, and skin integrity to trend WNL. 3.F/U as low risk in 7-10 days , 10/03-10/06
--- NOTE | 2019-10-03 03:27 | Progress Notes ---
DATE: 10/02/2019 PSYCHIATRIC PROGRESS NOTE SUBJECTIVE: Staff was spoken to. The patient is interviewed. Chart is reviewed. The patient continues to be isolative and withdrawn. Insight and judgment are noted to be still impaired. Impulse control seems to be limited. The patient is feeling frustrated that she has not been able to secure placement. The patient's coping skills are noted to be very poor. The patient is not presenting with any threats to harm self, but the patient is still depressed. Sleep is noted to be improving, but the patient is not able to tolerate any noise at all. Appetite is noted to be fair. No side effects to the medications are noted. The patient has been able to tolerate Paxil and Seroquel. ASSESSMENT: The patient is still depressed. PLAN: To continue the patient with the supportive therapy and followup. JOB# [id number]
[2019-10-03] MEDS: Pantoprazole 40 mg EC Tab PO SCH (06:42)
[2019-10-03] MEDS: Calcium Carb/Vit D 500 mg/200 U Tab PO SCH ×2 (09:23→17:10)
[2019-10-03] MEDS: Fluticasone Propionate Nasal 1 SPR SPR NS SCH (09:25)
[2019-10-03] MEDS: NYSTATIN 100000 UNITS/GM POWD TP SCH ×2 (09:25→16:55)
[2019-10-03] MEDS: Menthol/Zinc Oxide Oint 113gm Tube TP PRN ×2 (09:26→16:59)
--- NOTE | 2019-10-03 09:54 | Internal Medicine Prog Note ---
Internal Medicine Subjective - Subjective Patient seen and examined:: with staff, chart reviewed Patient is:: awake, verbal, interactive, in bed, denies any new complaints Patient Complaints of:: congestion Per staff patient has:: no adverse event, no episodes of fall, tolerating meds Internal Medicine Objective - Physical Exam Vitals and I&O: Vital Signs Temp 98.1 F 10/02/19 20:38 Pulse 75 10/02/19 20:38 Resp 19 10/02/19 20:38 BP 120/73 10/02/19 20:38 Pulse Ox 97 10/02/19 20:38 Intake & Output 10/02/19 10/03/19 10/03/19 18:59 06:59 18:59 Intake Total 240 Balance 240 Intake: Oral 240 Other: # Voids 3 1 # Bowel Movements 0 Active Medications: Current Medications Acetaminophen (Tylenol) 650 mg PO Q4H PRN PRN Reason: Pain (Moderate 4-6) Stop: 11/25/19 14:38 Last Admin: 10/01/19 15:27 Dose: 650 mg Albuterol Sulfate (Albuterol 2.5mg/3ml Neb Ud) 2.5 mg HHN Q6HR PRN PRN Reason: Wheezing Stop: 11/24/19 23:02 Calamine/Phenol (Calmoseptine) 1 appl TP QID PRN PRN Reason: Skin Irritation Stop: 11/26/19 13:26 Last Admin: 09/30/19 09:01 Dose: 1 appl Calcium Carbonate (Tums) 500 mg PO TID PRN PRN Reason: GI DISTRESS Stop: 11/25/19 20:59 Last Admin: 10/02/19 21:12 Dose: 500 mg Calcium/Vitamin D (Oscal W/Vitamin D) 1 tab PO BID EDDIE Stop: 11/25/19 16:59 Last Admin: 10/03/19 09:23 Dose: 1 tab Fluticasone Propionate (Flonase) 2 spr NS DAILY EDDIE Stop: 11/26/19 08:59 Last Admin: 10/03/19 09:25 Dose: 2 spr Hydrocortisone (Hydrocortisone 1%) 1 appl TP DAILY EDDIE Stop: 11/30/19 08:59 Last Admin: 10/03/19 09:26 Dose: Not Given Loratadine (Claritin) 10 mg PO DAILY EDDIE Stop: 11/25/19 08:59 Last Admin: 10/03/19 09:23 Dose: 10 mg Lorazepam (Ativan) 0.5 mg PO Q6HR PRN; Protocol PRN Reason: Agitation Stop: 11/24/19 23:02 Last Admin: 09/29/19 16:58 Dose: 0.5 mg Nystatin (Nystop) 100,000 units TP BID EDDIE Stop: 11/26/19 08:59 Last Admin: 10/03/19 09:25 Dose: Not Given Ondansetron HCl (Zofran Odt) 4 mg PO Q8HR PRN PRN Reason: Nausea Stop: 11/24/19 23:02 Last Admin: 10/03/19 08:46 Dose: 4 mg Pantoprazole Sodium (Protonix) 40 mg PO QDAC EDDIE Stop: 11/26/19 07:29 Last Admin: 10/03/19 06:42 Dose: 40 mg Paroxetine HCl (Paxil) 40 mg PO DAILY [facility]; Protocol Stop: 11/25/19 08:59 Last Admin: 10/03/19 09:23 Dose: 40 mg Trazodone HCl (Desyrel) 100 mg PO HS EDDIE; Protocol Stop: 11/25/19 20:59 Last Admin: 10/02/19 21:07 Dose: 100 mg General: alert, obese HEENT: NC/AT, PERRLA, EOMI Neck: Supple, No JVD, No thyromegaly Lungs: CTAB Cardiovascular: RRR, Normal S1, Normal S2 Abdomen: soft, non-tender, globular, positive bowel sound Extremities: excoriation Neurological: no change Internal Medicine Assmt/Plan - Assessment Assessment: obesity gerd allergic rhinitis oa - Plan Plan: cont on adequate pain rx cont on ppi cont on histamine ojhanne cpm dw rn Nutritional Asmnt/Malnutr-PDOC - Dietary Evaluation Malnutrition Findings (Please click <Entered> for more info): Nutritional Asmnt/Malnutrition Start: 09/27/19 15: 12 Text: Status: Complete Freq: Protocol: Document 09/27/19 15:33 MAHIN (Rec: 09/27/19 15:35 [id number]) Nutritional Asmnt/Malnutrition Patient General Information Nutritional Screening Low Risk Consult Diagnosis Psychosis Pertinent Medical Hx/Surgical Hx GERD, Allergic Rhinitis, Osteoarthritis, Asthma Subjective Information Consult: Intertrigo/Wound Gluteal Sulcus and Gluten Free Dietary Restrictions Pt is a 69-year-old female admitted on 09/25 d/t depression, suicidal ideations . Pt ate 100% meals 09/26. Visited pt around lunch and noticed she only drank her milk. Pt stated she was not hungry at lunch as she ate her breakfast late d/t medication issues and stomach upset. Pt stated she needed some antacids. Talked with pt regarding her dietary restrictions related to Gluten , she understood well, needed no further education. I informed her we made her some Gluten-Free sandwiches if she needed an extra snack between meals. Pt held conversation fine, stated she would eat when her stomach settled, she ate 75% breakfast. Per wound care note (09/27), Extrinsic factors that delay wound healing: Decreased mobility. Gluteal Sulcus Wound is not open, Intertrigo with erythema and moisture associated skin damage, present on admission. Open area has 100% dark pink tissue . Pt weight charted as 109 Lb, the pt looked heavier upon observation when I visited her today. Asked nurse to reweigh pt for accurate estimation of nutritional needs, pt refused, conscious of being overweight. I went in and spoke with pt, she stated she estimates she is around 190 Lbs based on most recent weight check. Will try to reweigh again when pt feels more comfortable. Anthropometrics (based on pt recollection) HT: 53 WT: 190 LB (86.36 kg) ABW: 135 LB (60.80 kg) BMI: 33.7 (Obese) GI/ Skin Integrity GI: WNL, Soft, Round BM: 09/26 x1 I/O: 1060/Not Noted Skin: Rash, Redness Ludwin: 20 Diet Order: Regular Allergy: Gluten Estimated Energy Needs: ( Geriatric, ABW) 0514-5581 kcals (20-25 kcals/ kg) 50-60g Pro (0.8-1.0 g/kg) 0417-8914 ml (20-25 ml/kg) Current Diet Order/ Nutrition Support Regular Patient / S.O Can Pertinent Medications Albuterol (PRN), tums, Oscal with Vitamin D, Zofran Odt ( PRN), Protonix Pertinent Labs 09/22: BUN/Cr 6/0.3, AST 32 Nutritional Hx/Data Height 1.6 m Height (Calculated Centimeters) 160.0 Current Weight (lbs) 86.183 kg Weight (Calculated Kilograms) 86.2 Weight (Calculated Grams) 03732.6 [place] Body Weight 115 LB (52.27 kg) % [place] Body Weight 165 Body Mass Index (BMI) 33.6 Weight Status Obese GI Symptoms Last BM 09/26 x1 Usual diet at home Regular Skin Integrity/Comment: Skin: Rash, Redness Ludwin: 20 Per wound care note (09/27), Extrinsic factors that delay wound healing: Decreased mobility. Gluteal Sulcus Wound is not open, Intertrigo with erythema and moisture associated skin damage, present on admission. Open area has 100% dark pink tissue . Current %PO Fair (50-74%) Estimated Nutritional Goals BEE in Kcals: Adj wt of IBW Calories/Kcals/Kg 20-25 Kcals Calculated 8385-5380 Protein: Adj wt of IBW Protein g/k.8-1.0 Protein Calculated 50-60 Fluid: ml 8510-2263 ml (20-25 ml/kg) Nutritional Problem 1. Problem Problem Obesity Etiology r/t consistent energy overconsumption Signs/Symptoms: aeb BMI 33.7 (pt recollection) . Malnutrition Related to Morbid Obesity Malnutrition related to morbid obesity No Intervention/Recommendation Comments Continue Regular diet as tolerated. Expected Outcomes/Goals Expected Outcomes/Goals 1.PO intake to meet 75% of estimated nutritional needs. 2.Monitor PO intake, wt, nutrition related labs, and skin integrity to trend WNL. 3.F/U as low risk in 7-10 days , 10/03-10/06
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
[2019-10-04] MEDS: Pantoprazole 40 mg EC Tab PO SCH (06:56)
[2019-10-04] MEDS: Fluticasone Propionate Nasal 1 SPR SPR NS SCH (09:10)
[2019-10-04] MEDS: Calcium Carb/Vit D 500 mg/200 U Tab PO SCH ×2 (09:10→16:50)
[2019-10-04] MEDS: NYSTATIN 100000 UNITS/GM POWD TP SCH ×2 (09:10→16:50)
--- NOTE | 2019-10-04 13:12 | Internal Medicine Prog Note ---
Internal Medicine Subjective - Subjective Patient seen and examined:: with staff, chart reviewed Patient is:: awake, verbal, interactive, in bed, denies any new complaints Patient Complaints of:: congestion Per staff patient has:: no adverse event, no episodes of fall, tolerating meds Internal Medicine Objective - Physical Exam Vitals and I&O: Vital Signs Temp 98.4 F 10/03/19 20:58 Pulse 85 10/03/19 20:58 Resp 18 10/04/19 08:00 BP 136/77 10/03/19 20:58 Pulse Ox 90 10/03/19 20:58 Intake & Output 10/03/19 10/04/19 10/04/19 18:59 06:59 18:59 Intake Total 900 240 Balance 900 240 Intake: Oral 900 240 Other: # Voids 3 2 # Bowel Movements 1 Active Medications: Current Medications Acetaminophen (Tylenol) 650 mg PO Q4H PRN PRN Reason: Pain (Moderate 4-6) Stop: 11/25/19 14:38 Last Admin: 10/04/19 11:21 Dose: 650 mg Albuterol Sulfate (Albuterol 2.5mg/3ml Neb Ud) 2.5 mg HHN Q6HR PRN PRN Reason: Wheezing Stop: 11/24/19 23:02 Calamine/Phenol (Calmoseptine) 1 appl TP QID PRN PRN Reason: Skin Irritation Stop: 11/26/19 13:26 Last Admin: 10/03/19 16:59 Dose: 1 appl Calcium Carbonate (Tums) 500 mg PO TID PRN PRN Reason: GI DISTRESS Stop: 11/25/19 20:59 Last Admin: 10/02/19 21:12 Dose: 500 mg Calcium/Vitamin D (Oscal W/Vitamin D) 1 tab PO BID EDDIE Stop: 11/25/19 16:59 Last Admin: 10/04/19 09:10 Dose: 1 tab Fluticasone Propionate (Flonase) 2 spr NS DAILY EDDIE Stop: 11/26/19 08:59 Last Admin: 10/04/19 09:10 Dose: 2 spr Hydrocortisone (Hydrocortisone 1%) 1 appl TP DAILY EDDIE Stop: 11/30/19 08:59 Last Admin: 10/04/19 09:10 Dose: 1 appl Loratadine (Claritin) 10 mg PO DAILY EDDIE Stop: 11/25/19 08:59 Last Admin: 10/04/19 09:10 Dose: 10 mg Lorazepam (Ativan) 0.5 mg PO Q6HR PRN; Protocol PRN Reason: Agitation Stop: 11/24/19 23:02 Last Admin: 10/03/19 20:57 Dose: 0.5 mg Nystatin (Nystop) 100,000 units TP BID EDDIE Stop: 11/26/19 08:59 Last Admin: 10/04/19 09:10 Dose: 100,000 units Ondansetron HCl (Zofran Odt) 4 mg PO Q8HR PRN PRN Reason: Nausea Stop: 11/24/19 23:02 Last Admin: 10/03/19 08:46 Dose: 4 mg Pantoprazole Sodium (Protonix) 40 mg PO QDAC EDDIE Stop: 11/26/19 07:29 Last Admin: 10/04/19 06:56 Dose: Not Given Paroxetine HCl (Paxil) 40 mg PO DAILY [facility]; Protocol Stop: 11/25/19 08:59 Last Admin: 10/04/19 09:10 Dose: 40 mg Trazodone HCl (Desyrel) 100 mg PO HS EDDIE; Protocol Stop: 11/25/19 20:59 Last Admin: 10/03/19 20:56 Dose: 100 mg General: alert, obese HEENT: NC/AT, PERRLA, EOMI Neck: Supple, No JVD, No thyromegaly Lungs: CTAB Cardiovascular: RRR, Normal S1, Normal S2 Abdomen: soft, non-tender, globular, positive bowel sound Extremities: excoriation Neurological: no change Internal Medicine Assmt/Plan - Assessment Assessment: obesity gerd allergic rhinitis oa - Plan Plan: cont on adequate pain rx cont on ppi cont on histamine johanne cpm dw rn Nutritional Asmnt/Malnutr-PDOC - Dietary Evaluation Malnutrition Findings (Please click <Entered> for more info): Nutritional Asmnt/Malnutrition Start: 09/27/19 15: 12 Text: Status: Complete Freq: Protocol: Document 09/27/19 15:33 [email or web address] (Rec: 09/27/19 15:35 JEXAMUS [id number]) Nutritional Asmnt/Malnutrition Patient General Information Nutritional Screening Low Risk Consult Diagnosis Psychosis Pertinent Medical Hx/Surgical Hx GERD, Allergic Rhinitis, Osteoarthritis, Asthma Subjective Information Consult: Intertrigo/Wound Gluteal Sulcus and Gluten Free Dietary Restrictions Pt is a 69-year-old female admitted on 09/25 d/t depression, suicidal ideations . Pt ate 100% meals 09/26. Visited pt around lunch and noticed she only drank her milk. Pt stated she was not hungry at lunch as she ate her breakfast late d/t medication issues and stomach upset. Pt stated she needed some antacids. Talked with pt regarding her dietary restrictions related to Gluten , she understood well, needed no further education. I informed her we made her some Gluten-Free sandwiches if she needed an extra snack between meals. Pt held conversation fine, stated she would eat when her stomach settled, she ate 75% breakfast. Per wound care note (09/27), Extrinsic factors that delay wound healing: Decreased mobility. Gluteal Sulcus Wound is not open, Intertrigo with erythema and moisture associated skin damage, present on admission. Open area has 100% dark pink tissue . Pt weight charted as 109 Lb, the pt looked heavier upon observation when I visited her today. Asked nurse to reweigh pt for accurate estimation of nutritional needs, pt refused, conscious of being overweight. I went in and spoke with pt, she stated she estimates she is around 190 Lbs based on most recent weight check. Will try to reweigh again when pt feels more comfortable. Anthropometrics (based on pt recollection) HT: 53 WT: 190 LB (86.36 kg) ABW: 135 LB (60.80 kg) BMI: 33.7 (Obese) GI/ Skin Integrity GI: WNL, Soft, Round BM: 09/26 x1 I/O: 1060/Not Noted Skin: Rash, Redness Ludwin: 20 Diet Order: Regular Allergy: Gluten Estimated Energy Needs: ( Geriatric, ABW) 3347-3789 kcals (20-25 kcals/ kg) 50-60g Pro (0.8-1.0 g/kg) 8611-7899 ml (20-25 ml/kg) Current Diet Order/ Nutrition Support Regular Patient / S.O Can Pertinent Medications Albuterol (PRN), tums, Oscal with Vitamin D, Zofran Odt ( PRN), Protonix Pertinent Labs 09/22: BUN/Cr 6/0.3, AST 32 Nutritional Hx/Data Height 1.6 m Height (Calculated Centimeters) 160.0 Current Weight (lbs) 86.183 kg Weight (Calculated Kilograms) 86.2 Weight (Calculated Grams) 93174.6 [place] Body Weight 115 LB (52.27 kg) % [place] Body Weight 165 Body Mass Index (BMI) 33.6 Weight Status Obese GI Symptoms Last BM 09/26 x1 Usual diet at home Regular Skin Integrity/Comment: Skin: Rash, Redness Ludwin: 20 Per wound care note (09/27), Extrinsic factors that delay wound healing: Decreased mobility. Gluteal Sulcus Wound is not open, Intertrigo with erythema and moisture associated skin damage, present on admission. Open area has 100% dark pink tissue . Current %PO Fair (50-74%) Estimated Nutritional Goals BEE in Kcals: Adj wt of IBW Calories/Kcals/Kg 20-25 Kcals Calculated 4017-0302 Protein: Adj wt of IBW Protein g/k.8-1.0 Protein Calculated 50-60 Fluid: ml 7321-0352 ml (20-25 ml/kg) Nutritional Problem 1. Problem Problem Obesity Etiology r/t consistent energy overconsumption Signs/Symptoms: aeb BMI 33.7 (pt recollection) . Malnutrition Related to Morbid Obesity Malnutrition related to morbid obesity No Intervention/Recommendation Comments Continue Regular diet as tolerated. Expected Outcomes/Goals Expected Outcomes/Goals 1.PO intake to meet 75% of estimated nutritional needs. 2.Monitor PO intake, wt, nutrition related labs, and skin integrity to trend WNL. 3.F/U as low risk in 7-10 days , 10/03-10/06
[2019-10-04] MEDS: Magnesium Hydroxide (MOM) 30 mL UDC PO PRN (13:43)
--- NOTE | 2019-10-05 00:18 | Progress Notes ---
DATE: 10/04/2019 PSYCHIATRIC PROGRESS NOTE SUBJECTIVE: Staff was spoken to. The patient is interviewed. Mood is noted to be irritable. Affect is constricted. The patient is stating that she has been trying her best to get into an area that has some cultural component to it. The patient is stating that she is looking for some place close to [place] or [facility] and she has driven over there and she feels comfortable over there. manager cash and secondary social studies teacher have been to speak to the patient and they are working with the patient and look for an independent living. ASSESSMENT: The patient is still depressed, but not suicidal. PLAN: To continue the patient with the supportive therapy, encouraged the patient to verbalize the concerns rather than to act out. JOB# [id number]
[2019-10-05] MEDS: Pantoprazole 40 mg EC Tab PO SCH (06:32)
[2019-10-05] MEDS: Calcium Carb/Vit D 500 mg/200 U Tab PO SCH ×2 (10:09→17:50)
[2019-10-05] MEDS: NYSTATIN 100000 UNITS/GM POWD TP SCH ×2 (10:10→17:50)
[2019-10-05] MEDS: Fluticasone Propionate Nasal 1 SPR SPR NS SCH (10:10)
--- NOTE | 2019-10-05 13:14 | Internal Medicine Prog Note ---
Internal Medicine Subjective - Subjective Patient seen and examined:: with staff, chart reviewed Patient is:: awake, verbal, interactive, in bed, denies any new complaints Patient Complaints of:: congestion Per staff patient has:: no adverse event, no episodes of fall, tolerating meds Internal Medicine Objective - Physical Exam Vitals and I&O: Vital Signs Temp 97.3 F 10/04/19 20:45 Pulse 72 10/04/19 20:45 Resp 20 10/04/19 20:45 BP 129/69 10/04/19 20:45 Pulse Ox 92 10/04/19 20:45 Intake & Output 10/04/19 10/05/19 10/05/19 18:59 06:59 18:59 Intake Total 950 240 Balance 950 240 Intake: Oral 950 240 Other: # Voids 4 2 # Bowel Movements 0 Active Medications: Current Medications Acetaminophen (Tylenol) 650 mg PO Q4H PRN PRN Reason: Pain (Moderate 4-6) Stop: 11/25/19 14:38 Last Admin: 10/04/19 21:31 Dose: 650 mg Albuterol Sulfate (Albuterol 2.5mg/3ml Neb Ud) 2.5 mg HHN Q6HR PRN PRN Reason: Wheezing Stop: 11/24/19 23:02 Calamine/Phenol (Calmoseptine) 1 appl TP QID PRN PRN Reason: Skin Irritation Stop: 11/26/19 13:26 Last Admin: 10/03/19 16:59 Dose: 1 appl Calcium Carbonate (Tums) 500 mg PO TID PRN PRN Reason: GI DISTRESS Stop: 11/25/19 20:59 Last Admin: 10/02/19 21:12 Dose: 500 mg Calcium/Vitamin D (Oscal W/Vitamin D) 1 tab PO BID EDDIE Stop: 11/25/19 16:59 Last Admin: 10/05/19 10:09 Dose: 1 tab Fluticasone Propionate (Flonase) 2 spr NS DAILY EDDIE Stop: 11/26/19 08:59 Last Admin: 10/05/19 10:10 Dose: 2 spr Hydrocortisone (Hydrocortisone 1%) 1 appl TP DAILY EDDIE Stop: 11/30/19 08:59 Last Admin: 10/05/19 10:10 Dose: 1 appl Loratadine (Claritin) 10 mg PO DAILY EDDIE Stop: 11/25/19 08:59 Last Admin: 10/05/19 10:09 Dose: 10 mg Lorazepam (Ativan) 0.5 mg PO Q6HR PRN; Protocol PRN Reason: Agitation Stop: 11/24/19 23:02 Last Admin: 10/04/19 21:30 Dose: 0.5 mg Magnesium Hydroxide (Milk Of Magnesia) 30 ml PO DAILY PRN PRN Reason: Constipation Stop: 12/03/19 13:14 Last Admin: 10/04/19 13:43 Dose: 30 ml Nystatin (Nystop) 100,000 units TP BID EDDIE Stop: 11/26/19 08:59 Last Admin: 10/05/19 10:10 Dose: 100,000 units Ondansetron HCl (Zofran Odt) 4 mg PO Q8HR PRN PRN Reason: Nausea Stop: 11/24/19 23:02 Last Admin: 10/03/19 08:46 Dose: 4 mg Pantoprazole Sodium (Protonix) 40 mg PO QDAC EDDIE Stop: 11/26/19 07:29 Last Admin: 10/05/19 06:32 Dose: 40 mg Paroxetine HCl (Paxil) 40 mg PO DAILY EDDIE; Protocol Stop: 11/25/19 08:59 Last Admin: 10/05/19 10:09 Dose: 40 mg Trazodone HCl (Desyrel) 100 mg PO HS EDDIE; Protocol Stop: 11/25/19 20:59 Last Admin: 10/04/19 21:30 Dose: 100 mg General: alert, obese HEENT: NC/AT, PERRLA, EOMI Neck: Supple, No JVD, No thyromegaly Lungs: CTAB Cardiovascular: RRR, Normal S1, Normal S2 Abdomen: soft, non-tender, globular, positive bowel sound Extremities: excoriation Neurological: no change Internal Medicine Assmt/Plan - Assessment Assessment: obesity gerd allergic rhinitis oa - Plan Plan: cont on adequate pain rx cont on ppi cont on histamine johanne cpm dw rn Nutritional Asmnt/Malnutr-PDOC - Dietary Evaluation Malnutrition Findings (Please click <Entered> for more info): Nutritional Asmnt/Malnutrition Start: 09/27/19 15: 12 Text: Status: Complete Freq: Protocol: Document 09/27/19 15:33 JEXAMUS (Rec: 09/27/19 15:35 [email or web address] [id number]) Nutritional Asmnt/Malnutrition Patient General Information Nutritional Screening Low Risk Consult Diagnosis Psychosis Pertinent Medical Hx/Surgical Hx GERD, Allergic Rhinitis, Osteoarthritis, Asthma Subjective Information Consult: Intertrigo/Wound Gluteal Sulcus and Gluten Free Dietary Restrictions Pt is a 69-year-old female admitted on 09/25 d/t depression, suicidal ideations . Pt ate 100% meals 09/26. Visited pt around lunch and noticed she only drank her milk. Pt stated she was not hungry at lunch as she ate her breakfast late d/t medication issues and stomach upset. Pt stated she needed some antacids. Talked with pt regarding her dietary restrictions related to Gluten , she understood well, needed no further education. I informed her we made her some Gluten-Free sandwiches if she needed an extra snack between meals. Pt held conversation fine, stated she would eat when her stomach settled, she ate 75% breakfast. Per wound care note (09/27), Extrinsic factors that delay wound healing: Decreased mobility. Gluteal Sulcus Wound is not open, Intertrigo with erythema and moisture associated skin damage, present on admission. Open area has 100% dark pink tissue . Pt weight charted as 109 Lb, the pt looked heavier upon observation when I visited her today. Asked nurse to reweigh pt for accurate estimation of nutritional needs, pt refused, conscious of being overweight. I went in and spoke with pt, she stated she estimates she is around 190 Lbs based on most recent weight check. Will try to reweigh again when pt feels more comfortable. Anthropometrics (based on pt recollection) HT: 53 WT: 190 LB (86.36 kg) ABW: 135 LB (60.80 kg) BMI: 33.7 (Obese) GI/ Skin Integrity GI: WNL, Soft, Round BM: 09/26 x1 I/O: 1060/Not Noted Skin: Rash, Redness Ludwin: 20 Diet Order: Regular Allergy: Gluten Estimated Energy Needs: ( Geriatric, ABW) 3165-3508 kcals (20-25 kcals/ kg) 50-60g Pro (0.8-1.0 g/kg) 3575-3901 ml (20-25 ml/kg) Current Diet Order/ Nutrition Support Regular Patient / S.O Can Pertinent Medications Albuterol (PRN), tums, Oscal with Vitamin D, Zofran Odt ( PRN), Protonix Pertinent Labs 09/22: BUN/Cr 6/0.3, AST 32 Nutritional Hx/Data Height 1.6 m Height (Calculated Centimeters) 160.0 Current Weight (lbs) 86.183 kg Weight (Calculated Kilograms) 86.2 Weight (Calculated Grams) 52011.6 [place] Body Weight 115 LB (52.27 kg) % [place] Body Weight 165 Body Mass Index (BMI) 33.6 Weight Status Obese GI Symptoms Last BM 09/26 x1 Usual diet at home Regular Skin Integrity/Comment: Skin: Rash, Redness Ludwin: 20 Per wound care note (09/27), Extrinsic factors that delay wound healing: Decreased mobility. Gluteal Sulcus Wound is not open, Intertrigo with erythema and moisture associated skin damage, present on admission. Open area has 100% dark pink tissue . Current %PO Fair (50-74%) Estimated Nutritional Goals BEE in Kcals: Adj wt of IBW Calories/Kcals/Kg 20-25 Kcals Calculated 3963-7132 Protein: Adj wt of IBW Protein g/k.8-1.0 Protein Calculated 50-60 Fluid: ml 0644-9702 ml (20-25 ml/kg) Nutritional Problem 1. Problem Problem Obesity Etiology r/t consistent energy overconsumption Signs/Symptoms: aeb BMI 33.7 (pt recollection) . Malnutrition Related to Morbid Obesity Malnutrition related to morbid obesity No Intervention/Recommendation Comments Continue Regular diet as tolerated. Expected Outcomes/Goals Expected Outcomes/Goals 1.PO intake to meet 75% of estimated nutritional needs. 2.Monitor PO intake, wt, nutrition related labs, and skin integrity to trend WNL. 3.F/U as low risk in 7-10 days , 10/03-10/06
--- NOTE | 2019-10-05 17:21 | Progress Notes ---
DATE: 10/04/2019 PSYCHOLOGY PROGRESS NOTE SUBJECTIVE: The patient is seen in her room. The patient is in bed reading. The patient presents as pleasant and is responding to the clinical interview questions. Mood is moderately dysphoric. Affect is reactive. Thought process shows to be linear and logical with a normal pattern of association. The patient denied any suicidal plan or intention. The patient admits that she continues to have thoughts of suicide; however, these are passive and the patient is able to verbally contract for safety. The patient responded to some of the insight oriented therapeutic interventions provided. The patient had spoken with the social work case manager/pediatric social worker this morning about finding a place near [place] or [place]. The patient stated that she forgot to tell the social work case manager that she wanted a private room somewhere near shopping because she prepares her own food. The patient does not want to return to her previous independent living. OBJECTIVE: Mood is dysphoric. Affect is mood congruent and reactive. Thought process shows to be logical and linear. The patient denies any suicidal plan or intention, however, suicidal ideation persists. The patient has been compliant with her medication. The patient continues to be isolative and withdrawn. The patient states this is because she has PTSD and that the other patients on the unit precipitate anxiety responses and fear. ASSESSMENT: The patient continues to be depressed, but denies being suicidal. The patient denied any active plan or intention. PLAN: The patient was able to verbally contract for safety. The patient denies any plan or intention for self-harm. The patient was concerned about placement and discussion with executive secretary social welfare by this provider. We provided suicide prevention skills as well as coping strategies for phase of life issues. We encouraged the patient to verbalize any self-harm thoughts and to be able to process these and apply prevention skills versus acting out. This provider also provided simple cognitive behavioral skills to reduce the patient's depression. We will follow up in 2-3 days to continue the present treatment if the patient remains admitted on the unit. JOB# [id number] [place]
--- NOTE | 2019-10-06 02:15 | Progress Notes ---
DATE: 10/05/2019 SUBJECTIVE: Staff was spoken to. The patient is interviewed. Mood is noted to be irritable. Affect is constricted. Insight and judgment are noted to be still impaired. Impulse control seems to be fair. The patient is stating that she is getting frustrated for being in here for too long, and wants to go to some place close to [place]. The patient's case coordinator has been working with the patient with regards to finding an independent living close to where the patient wants to be residing. No placement has been available at this time. PLAN: To continue the patient with supportive therapy, encouraged the patient to verbalize the concerns rather than to act out. JOB# [id number]
[2019-10-06] MEDS: Pantoprazole 40 mg EC Tab PO SCH (06:35)
[2019-10-06] MEDS: Fluticasone Propionate Nasal 1 SPR SPR NS SCH (09:13)
[2019-10-06] MEDS: NYSTATIN 100000 UNITS/GM POWD TP SCH ×2 (09:14→16:51)
[2019-10-06] MEDS: Calcium Carb/Vit D 500 mg/200 U Tab PO SCH ×2 (09:14→16:51)
--- NOTE | 2019-10-06 13:25 | Diagnostic Imaging Report ---
Portable chest x-ray HISTORY: Cough, tuberculosis The overall heart size is normal. There is elevation the right hemidiaphragm. No focal or acute pulmonary processes. No hilar or mediastinal abnormalities. IMPRESSION: 1. No acute abnormalities 2. Elevation the right hemidiaphragm 3. No radiographic evidence of tuberculosis.
--- NOTE | 2019-10-06 13:47 | Internal Medicine Prog Note ---
Internal Medicine Subjective - Subjective Patient seen and examined:: with staff, chart reviewed Patient is:: awake, verbal, interactive, in bed, denies any new complaints Patient Complaints of:: congestion Per staff patient has:: no adverse event, no episodes of fall, tolerating meds Internal Medicine Objective - Physical Exam Vitals and I&O: Vital Signs Temp 98.1 F 10/05/19 20:00 Pulse 77 10/05/19 20:00 Resp 18 10/06/19 08:00 BP 137/86 10/05/19 20:00 Pulse Ox 93 10/05/19 20:00 Intake & Output 10/05/19 10/06/19 10/06/19 18:59 06:59 18:59 Intake Total 1200 120 Balance 1200 120 Intake: Oral 1200 120 Other: # Voids 4 2 # Bowel Movements 0 Active Medications: Current Medications Acetaminophen (Tylenol) 650 mg PO Q4H PRN PRN Reason: Pain (Moderate 4-6) Stop: 11/25/19 14:38 Last Admin: 10/05/19 20:55 Dose: 650 mg Albuterol Sulfate (Albuterol 2.5mg/3ml Neb Ud) 2.5 mg HHN Q6HR PRN PRN Reason: Wheezing Stop: 11/24/19 23:02 Calamine/Phenol (Calmoseptine) 1 appl TP QID PRN PRN Reason: Skin Irritation Stop: 11/26/19 13:26 Last Admin: 10/03/19 16:59 Dose: 1 appl Calcium Carbonate (Tums) 500 mg PO TID PRN PRN Reason: GI DISTRESS Stop: 11/25/19 20:59 Last Admin: 10/02/19 21:12 Dose: 500 mg Calcium/Vitamin D (Oscal W/Vitamin D) 1 tab PO BID EDDIE Stop: 11/25/19 16:59 Last Admin: 10/06/19 09:14 Dose: 1 tab Fluticasone Propionate (Flonase) 2 spr NS DAILY EDDIE Stop: 11/26/19 08:59 Last Admin: 10/06/19 09:13 Dose: 2 spr Hydrocortisone (Hydrocortisone 1%) 1 appl TP DAILY EDDIE Stop: 11/30/19 08:59 Last Admin: 10/06/19 09:14 Dose: 1 appl Loratadine (Claritin) 10 mg PO DAILY EDDIE Stop: 11/25/19 08:59 Last Admin: 10/06/19 09:14 Dose: 10 mg Lorazepam (Ativan) 0.5 mg PO Q6HR PRN; Protocol PRN Reason: Agitation Stop: 11/24/19 23:02 Last Admin: 10/05/19 20:55 Dose: 0.5 mg Magnesium Hydroxide (Milk Of Magnesia) 30 ml PO DAILY PRN PRN Reason: Constipation Stop: 12/03/19 13:14 Last Admin: 10/04/19 13:43 Dose: 30 ml Nystatin (Nystop) 100,000 units TP BID EDDIE Stop: 11/26/19 08:59 Last Admin: 10/06/19 09:14 Dose: 100,000 units Ondansetron HCl (Zofran Odt) 4 mg PO Q8HR PRN PRN Reason: Nausea Stop: 11/24/19 23:02 Last Admin: 10/03/19 08:46 Dose: 4 mg Pantoprazole Sodium (Protonix) 40 mg PO QDAC EDDIE Stop: 11/26/19 07:29 Last Admin: 10/06/19 06:35 Dose: 40 mg Paroxetine HCl (Paxil) 40 mg PO DAILY EDDIE; Protocol Stop: 11/25/19 08:59 Last Admin: 10/06/19 09:14 Dose: 40 mg Trazodone HCl (Desyrel) 100 mg PO HS EDDIE; Protocol Stop: 11/25/19 20:59 Last Admin: 10/05/19 20:55 Dose: 100 mg General: alert, obese HEENT: NC/AT, PERRLA, EOMI Neck: Supple, No JVD, No thyromegaly Lungs: CTAB Cardiovascular: RRR, Normal S1, Normal S2 Abdomen: soft, non-tender, globular, positive bowel sound Extremities: excoriation Neurological: no change Internal Medicine Assmt/Plan - Assessment Assessment: obesity gerd allergic rhinitis oa - Plan Plan: cont on adequate pain rx cont on ppi cont on histamine johanne cpm dw rn cxr - Nutritional Asmnt/Malnutr-PDOC - Dietary Evaluation Malnutrition Findings (Please click <Entered> for more info): Nutritional Asmnt/Malnutrition Start: 09/27/19 15: 12 Text: Status: Complete Freq: Protocol: Document 09/27/19 15:33 JEXAMUS (Rec: 09/27/19 15:35 [email or web address] [id number]) Nutritional Asmnt/Malnutrition Patient General Information Nutritional Screening Low Risk Consult Diagnosis Psychosis Pertinent Medical Hx/Surgical Hx GERD, Allergic Rhinitis, Osteoarthritis, Asthma Subjective Information Consult: Intertrigo/Wound Gluteal Sulcus and Gluten Free Dietary Restrictions Pt is a 69-year-old female admitted on 09/25 d/t depression, suicidal ideations . Pt ate 100% meals 09/26. Visited pt around lunch and noticed she only drank her milk. Pt stated she was not hungry at lunch as she ate her breakfast late d/t medication issues and stomach upset. Pt stated she needed some antacids. Talked with pt regarding her dietary restrictions related to Gluten , she understood well, needed no further education. I informed her we made her some Gluten-Free sandwiches if she needed an extra snack between meals. Pt held conversation fine, stated she would eat when her stomach settled, she ate 75% breakfast. Per wound care note (09/27), Extrinsic factors that delay wound healing: Decreased mobility. Gluteal Sulcus Wound is not open, Intertrigo with erythema and moisture associated skin damage, present on admission. Open area has 100% dark pink tissue . Pt weight charted as 109 Lb, the pt looked heavier upon observation when I visited her today. Asked nurse to reweigh pt for accurate estimation of nutritional needs, pt refused, conscious of being overweight. I went in and spoke with pt, she stated she estimates she is around 190 Lbs based on most recent weight check. Will try to reweigh again when pt feels more comfortable. Anthropometrics (based on pt recollection) HT: 53 WT: 190 LB (86.36 kg) ABW: 135 LB (60.80 kg) BMI: 33.7 (Obese) GI/ Skin Integrity GI: WNL, Soft, Round BM: 09/26 x1 I/O: 1060/Not Noted Skin: Rash, Redness Ludwin: 20 Diet Order: Regular Allergy: Gluten Estimated Energy Needs: ( Geriatric, ABW) 6935-4585 kcals (20-25 kcals/ kg) 50-60g Pro (0.8-1.0 g/kg) 9404-2562 ml (20-25 ml/kg) Current Diet Order/ Nutrition Support Regular Patient / S.O Can Pertinent Medications Albuterol (PRN), tums, Oscal with Vitamin D, Zofran Odt ( PRN), Protonix Pertinent Labs 09/22: BUN/Cr 6/0.3, AST 32 Nutritional Hx/Data Height 1.6 m Height (Calculated Centimeters) 160.0 Current Weight (lbs) 86.183 kg Weight (Calculated Kilograms) 86.2 Weight (Calculated Grams) 19575.6 [place] Body Weight 115 LB (52.27 kg) % [place] Body Weight 165 Body Mass Index (BMI) 33.6 Weight Status Obese GI Symptoms Last BM 09/26 x1 Usual diet at home Regular Skin Integrity/Comment: Skin: Rash, Redness Ludwin: 20 Per wound care note (09/27), Extrinsic factors that delay wound healing: Decreased mobility. Gluteal Sulcus Wound is not open, Intertrigo with erythema and moisture associated skin damage, present on admission. Open area has 100% dark pink tissue . Current %PO Fair (50-74%) Estimated Nutritional Goals BEE in Kcals: Adj wt of IBW Calories/Kcals/Kg 20-25 Kcals Calculated 9833-8170 Protein: Adj wt of IBW Protein g/k.8-1.0 Protein Calculated 50-60 Fluid: ml 7975-0310 ml (20-25 ml/kg) Nutritional Problem 1. Problem Problem Obesity Etiology r/t consistent energy overconsumption Signs/Symptoms: aeb BMI 33.7 (pt recollection) . Malnutrition Related to Morbid Obesity Malnutrition related to morbid obesity No Intervention/Recommendation Comments Continue Regular diet as tolerated. Expected Outcomes/Goals Expected Outcomes/Goals 1.PO intake to meet 75% of estimated nutritional needs. 2.Monitor PO intake, wt, nutrition related labs, and skin integrity to trend WNL. 3.F/U as low risk in 7-10 days , 10/03-10/06
[2019-10-06] MEDS: Magnesium Hydroxide (MOM) 30 mL UDC PO PRN (21:57)
--- NOTE | 2019-10-07 02:01 | Progress Notes ---
DATE: 10/06/2019 PSYCHIATRIC PROGRESS NOTE SUBJECTIVE: Information obtained by directly interviewing the patient as well as reviewing the admission papers and they are reliable. The patient has been stating that she does not want to go to any place close to the [place]. She wants to go to an independent living close to [place] or to [facility]. The patient is stating that she has been trying her best to keep to herself most of the time because she does not like the noise. The patient at this time has been able to verbalize the concerns rather than to act out. No side effects to the medications are noted. ASSESSMENT: The patient is still depressed. PLAN: To continue the patient with the supportive therapy and followup. [facility]# [id number]
[2019-10-07] MEDS: Pantoprazole 40 mg EC Tab PO SCH (06:44)
[2019-10-07] MEDS: NYSTATIN 100000 UNITS/GM POWD TP SCH ×2 (09:11→17:10)
[2019-10-07] MEDS: Fluticasone Propionate Nasal 1 SPR SPR NS SCH (09:11)
[2019-10-07] MEDS: Calcium Carb/Vit D 500 mg/200 U Tab PO SCH ×2 (09:12→17:10)
--- NOTE | 2019-10-07 13:11 | Internal Medicine Prog Note ---
Internal Medicine Subjective - Subjective Patient seen and examined:: with staff, chart reviewed Patient is:: awake, verbal, interactive, in bed, denies any new complaints Patient Complaints of:: congestion Per staff patient has:: no adverse event, no episodes of fall, tolerating meds Internal Medicine Objective - Physical Exam Vitals and I&O: Vital Signs Temp 98.1 F 10/06/19 20:38 Pulse 70 10/06/19 20:38 Resp 18 10/07/19 08:00 BP 124/77 10/06/19 20:38 Pulse Ox 96 10/06/19 20:38 Intake & Output 10/06/19 10/07/19 10/07/19 18:59 06:59 18:59 Intake Total 240 Balance 240 Intake: Oral 240 Other: # Voids 2 Active Medications: Current Medications Acetaminophen (Tylenol) 650 mg PO Q4H PRN PRN Reason: Pain (Moderate 4-6) Stop: 11/25/19 14:38 Last Admin: 10/06/19 17:01 Dose: 650 mg Albuterol Sulfate (Albuterol 2.5mg/3ml Neb Ud) 2.5 mg HHN Q6HR PRN PRN Reason: Wheezing Stop: 11/24/19 23:02 Calamine/Phenol (Calmoseptine) 1 appl TP QID PRN PRN Reason: Skin Irritation Stop: 11/26/19 13:26 Last Admin: 10/03/19 16:59 Dose: 1 appl Calcium Carbonate (Tums) 500 mg PO TID PRN PRN Reason: GI DISTRESS Stop: 11/25/19 20:59 Last Admin: 10/02/19 21:12 Dose: 500 mg Calcium/Vitamin D (Oscal W/Vitamin D) 1 tab PO BID EDDIE Stop: 11/25/19 16:59 Last Admin: 10/07/19 09:12 Dose: 1 tab Fluticasone Propionate (Flonase) 2 spr NS DAILY EDDIE Stop: 11/26/19 08:59 Last Admin: 10/07/19 09:11 Dose: 2 spr Hydrocortisone (Hydrocortisone 1%) 1 appl TP DAILY EDDIE Stop: 11/30/19 08:59 Last Admin: 10/07/19 09:11 Dose: 1 appl Loratadine (Claritin) 10 mg PO DAILY EDDIE Stop: 11/25/19 08:59 Last Admin: 10/07/19 09:12 Dose: 10 mg Lorazepam (Ativan) 0.5 mg PO Q6HR PRN; Protocol PRN Reason: Agitation Stop: 11/24/19 23:02 Last Admin: 10/06/19 22:07 Dose: 0.5 mg Magnesium Hydroxide (Milk Of Magnesia) 30 ml PO DAILY PRN PRN Reason: Constipation Stop: 12/03/19 13:14 Last Admin: 10/04/19 13:43 Dose: 30 ml Nystatin (Nystop) 100,000 units TP BID EDDIE Stop: 11/26/19 08:59 Last Admin: 10/07/19 09:11 Dose: 100,000 units Ondansetron HCl (Zofran Odt) 4 mg PO Q8HR PRN PRN Reason: Nausea Stop: 11/24/19 23:02 Last Admin: 10/03/19 08:46 Dose: 4 mg Pantoprazole Sodium (Protonix) 40 mg PO QDAC EDDIE Stop: 11/26/19 07:29 Last Admin: 10/07/19 06:44 Dose: 40 mg Paroxetine HCl (Paxil) 40 mg PO DAILY EDDIE; Protocol Stop: 11/25/19 08:59 Last Admin: 10/07/19 09:11 Dose: 40 mg Trazodone HCl (Desyrel) 100 mg PO HS EDDIE; Protocol Stop: 11/25/19 20:59 Last Admin: 10/06/19 21:56 Dose: 100 mg General: alert, obese HEENT: NC/AT, PERRLA, EOMI Neck: Supple, No JVD, No thyromegaly Lungs: CTAB Cardiovascular: RRR, Normal S1, Normal S2 Abdomen: soft, non-tender, globular, positive bowel sound Extremities: excoriation Neurological: no change Internal Medicine Assmt/Plan - Assessment Assessment: obesity gerd allergic rhinitis oa - Plan Plan: cont on adequate pain rx cont on ppi cont on histamine johanne cpm dw rn cxr - Nutritional Asmnt/Malnutr-PDOC - Dietary Evaluation Malnutrition Findings (Please click <Entered> for more info): Nutritional Asmnt/Malnutrition Start: 09/27/19 15: 12 Text: Status: Complete Freq: Protocol: Document 09/27/19 15:33 JEXAMUS (Rec: 09/27/19 15:35 [email or web address] [id number]) Nutritional Asmnt/Malnutrition Patient General Information Nutritional Screening Low Risk Consult Diagnosis Psychosis Pertinent Medical Hx/Surgical Hx GERD, Allergic Rhinitis, Osteoarthritis, Asthma Subjective Information Consult: Intertrigo/Wound Gluteal Sulcus and Gluten Free Dietary Restrictions Pt is a 69-year-old female admitted on 09/25 d/t depression, suicidal ideations . Pt ate 100% meals 09/26. Visited pt around lunch and noticed she only drank her milk. Pt stated she was not hungry at lunch as she ate her breakfast late d/t medication issues and stomach upset. Pt stated she needed some antacids. Talked with pt regarding her dietary restrictions related to Gluten , she understood well, needed no further education. I informed her we made her some Gluten-Free sandwiches if she needed an extra snack between meals. Pt held conversation fine, stated she would eat when her stomach settled, she ate 75% breakfast. Per wound care note (09/27), Extrinsic factors that delay wound healing: Decreased mobility. Gluteal Sulcus Wound is not open, Intertrigo with erythema and moisture associated skin damage, present on admission. Open area has 100% dark pink tissue . Pt weight charted as 109 Lb, the pt looked heavier upon observation when I visited her today. Asked nurse to reweigh pt for accurate estimation of nutritional needs, pt refused, conscious of being overweight. I went in and spoke with pt, she stated she estimates she is around 190 Lbs based on most recent weight check. Will try to reweigh again when pt feels more comfortable. Anthropometrics (based on pt recollection) HT: 53 WT: 190 LB (86.36 kg) ABW: 135 LB (60.80 kg) BMI: 33.7 (Obese) GI/ Skin Integrity GI: WNL, Soft, Round BM: 09/26 x1 I/O: 1060/Not Noted Skin: Rash, Redness Ludwin: 20 Diet Order: Regular Allergy: Gluten Estimated Energy Needs: ( Geriatric, ABW) 6167-4414 kcals (20-25 kcals/ kg) 50-60g Pro (0.8-1.0 g/kg) 5154-7219 ml (20-25 ml/kg) Current Diet Order/ Nutrition Support Regular Patient / S.O Can Pertinent Medications Albuterol (PRN), tums, Oscal with Vitamin D, Zofran Odt ( PRN), Protonix Pertinent Labs 09/22: BUN/Cr 6/0.3, AST 32 Nutritional Hx/Data Height 1.6 m Height (Calculated Centimeters) 160.0 Current Weight (lbs) 86.183 kg Weight (Calculated Kilograms) 86.2 Weight (Calculated Grams) 36688.6 [place] Body Weight 115 LB (52.27 kg) % [place] Body Weight 165 Body Mass Index (BMI) 33.6 Weight Status Obese GI Symptoms Last BM 09/26 x1 Usual diet at home Regular Skin Integrity/Comment: Skin: Rash, Redness Ludwin: 20 Per wound care note (09/27), Extrinsic factors that delay wound healing: Decreased mobility. Gluteal Sulcus Wound is not open, Intertrigo with erythema and moisture associated skin damage, present on admission. Open area has 100% dark pink tissue . Current %PO Fair (50-74%) Estimated Nutritional Goals BEE in Kcals: Adj wt of IBW Calories/Kcals/Kg 20-25 Kcals Calculated 2627-7552 Protein: Adj wt of IBW Protein g/k.8-1.0 Protein Calculated 50-60 Fluid: ml 2066-1889 ml (20-25 ml/kg) Nutritional Problem 1. Problem Problem Obesity Etiology r/t consistent energy overconsumption Signs/Symptoms: aeb BMI 33.7 (pt recollection) . Malnutrition Related to Morbid Obesity Malnutrition related to morbid obesity No Intervention/Recommendation Comments Continue Regular diet as tolerated. Expected Outcomes/Goals Expected Outcomes/Goals 1.PO intake to meet 75% of estimated nutritional needs. 2.Monitor PO intake, wt, nutrition related labs, and skin integrity to trend WNL. 3.F/U as low risk in 7-10 days , 10/03-10/06
--- NOTE | 2019-10-07 15:37 | Progress Notes ---
DATE: 10/07/2019 SUBJECTIVE: Staff was spoken to. The patient is interviewed. Mood is noted to be anxious. The patient is scheduled to have an interview for placement. The patient is hoping to get into the close to the [place], but the patient is stating that she has decided to change her mind and then go to somewhere close to [place]. manager roofing has been informed and they have been trying to get the patient with the placement. ASSESSMENT: The patient is stabilizing and awaiting placement. PLAN: To continue the patient with the supportive therapy and followup. JOB# [id number]
[2019-10-07] MEDS: Menthol/Zinc Oxide Oint 113gm Tube TP PRN (19:04)
[2019-10-08] MEDS: Pantoprazole 40 mg EC Tab PO SCH (06:41)
[2019-10-08] MEDS: Calcium Carb/Vit D 500 mg/200 U Tab PO SCH ×2 (08:57→17:42)
[2019-10-08] MEDS: Fluticasone Propionate Nasal 1 SPR SPR NS SCH (08:57)
[2019-10-08] MEDS: NYSTATIN 100000 UNITS/GM POWD TP SCH ×2 (08:58→17:42)
--- NOTE | 2019-10-08 15:37 | Internal Medicine Prog Note ---
Internal Medicine Subjective - Subjective Patient seen and examined:: with staff, chart reviewed Patient is:: awake, verbal, interactive, in bed, denies any new complaints Patient Complaints of:: congestion Per staff patient has:: no adverse event, no episodes of fall, tolerating meds Internal Medicine Objective - Physical Exam Vitals and I&O: Vital Signs Temp 98.5 F 10/08/19 14:00 Pulse 78 10/08/19 14:00 Resp 18 10/08/19 14:54 BP 125/82 10/08/19 14:00 Pulse Ox 98 10/08/19 14:00 Intake & Output 10/07/19 10/08/19 10/08/19 18:59 06:59 18:59 Intake Total 1200 240 Balance 1200 240 Intake: Oral 1200 240 Other: # Voids 1 # Bowel Movements 1 Active Medications: Current Medications Acetaminophen (Tylenol) 650 mg PO Q4H PRN PRN Reason: Pain (Moderate 4-6) Stop: 11/25/19 14:38 Last Admin: 10/06/19 17:01 Dose: 650 mg Albuterol Sulfate (Albuterol 2.5mg/3ml Neb Ud) 2.5 mg HHN Q6HR PRN PRN Reason: Wheezing Stop: 11/24/19 23:02 Calamine/Phenol (Calmoseptine) 1 appl TP QID PRN PRN Reason: Skin Irritation Stop: 11/26/19 13:26 Last Admin: 10/07/19 19:04 Dose: 1 appl Calcium Carbonate (Tums) 500 mg PO TID PRN PRN Reason: GI DISTRESS Stop: 11/25/19 20:59 Last Admin: 10/02/19 21:12 Dose: 500 mg Calcium/Vitamin D (Oscal W/Vitamin D) 1 tab PO BID EDDIE Stop: 11/25/19 16:59 Last Admin: 10/08/19 08:57 Dose: 1 tab Fluticasone Propionate (Flonase) 2 spr NS DAILY EDDIE Stop: 11/26/19 08:59 Last Admin: 10/08/19 08:57 Dose: 2 spr Hydrocortisone (Hydrocortisone 1%) 1 appl TP DAILY EDDIE Stop: 11/30/19 08:59 Last Admin: 10/08/19 08:58 Dose: 1 appl Loratadine (Claritin) 10 mg PO DAILY EDDIE Stop: 11/25/19 08:59 Last Admin: 10/08/19 08:58 Dose: 10 mg Lorazepam (Ativan) 0.5 mg PO Q6HR PRN; Protocol PRN Reason: Agitation Stop: 11/24/19 23:02 Last Admin: 10/07/19 21:49 Dose: 0.5 mg Magnesium Hydroxide (Milk Of Magnesia) 30 ml PO DAILY PRN PRN Reason: Constipation Stop: 12/03/19 13:14 Last Admin: 10/04/19 13:43 Dose: 30 ml Nystatin (Nystop) 100,000 units TP BID EDDIE Stop: 11/26/19 08:59 Last Admin: 10/08/19 08:58 Dose: 100,000 units Ondansetron HCl (Zofran Odt) 4 mg PO Q8HR PRN PRN Reason: Nausea Stop: 11/24/19 23:02 Last Admin: 10/03/19 08:46 Dose: 4 mg Pantoprazole Sodium (Protonix) 40 mg PO QDAC EDDIE Stop: 11/26/19 07:29 Last Admin: 10/08/19 06:41 Dose: 40 mg Paroxetine HCl (Paxil) 40 mg PO DAILY EDDIE; Protocol Stop: 11/25/19 08:59 Last Admin: 10/08/19 08:58 Dose: 40 mg Trazodone HCl (Desyrel) 100 mg PO HS EDDIE; Protocol Stop: 11/25/19 20:59 Last Admin: 10/07/19 21:45 Dose: 100 mg General: alert, obese HEENT: NC/AT, PERRLA, EOMI Neck: Supple, No JVD, No thyromegaly Lungs: CTAB Cardiovascular: RRR, Normal S1, Normal S2 Abdomen: soft, non-tender, globular, positive bowel sound Extremities: excoriation Neurological: no change Internal Medicine Assmt/Plan - Assessment Assessment: obesity gerd allergic rhinitis oa - Plan Plan: cont on adequate pain rx cont on ppi cont on histamine johanne cpm dw rn cxr - Nutritional Asmnt/Malnutr-PDOC - Dietary Evaluation Malnutrition Findings (Please click <Entered> for more info): Nutritional Asmnt/Malnutrition Start: 09/27/19 15: 12 Text: Status: Complete Freq: Protocol: Document 09/27/19 15:33 JEXAMUS (Rec: 09/27/19 15:35 [email or web address] [id number]) Nutritional Asmnt/Malnutrition Patient General Information Nutritional Screening Low Risk Consult Diagnosis Psychosis Pertinent Medical Hx/Surgical Hx GERD, Allergic Rhinitis, Osteoarthritis, Asthma Subjective Information Consult: Intertrigo/Wound Gluteal Sulcus and Gluten Free Dietary Restrictions Pt is a 69-year-old female admitted on 09/25 d/t depression, suicidal ideations . Pt ate 100% meals 09/26. Visited pt around lunch and noticed she only drank her milk. Pt stated she was not hungry at lunch as she ate her breakfast late d/t medication issues and stomach upset. Pt stated she needed some antacids. Talked with pt regarding her dietary restrictions related to Gluten , she understood well, needed no further education. I informed her we made her some Gluten-Free sandwiches if she needed an extra snack between meals. Pt held conversation fine, stated she would eat when her stomach settled, she ate 75% breakfast. Per wound care note (09/27), Extrinsic factors that delay wound healing: Decreased mobility. Gluteal Sulcus Wound is not open, Intertrigo with erythema and moisture associated skin damage, present on admission. Open area has 100% dark pink tissue . Pt weight charted as 109 Lb, the pt looked heavier upon observation when I visited her today. Asked nurse to reweigh pt for accurate estimation of nutritional needs, pt refused, conscious of being overweight. I went in and spoke with pt, she stated she estimates she is around 190 Lbs based on most recent weight check. Will try to reweigh again when pt feels more comfortable. Anthropometrics (based on pt recollection) HT: 53 WT: 190 LB (86.36 kg) ABW: 135 LB (60.80 kg) BMI: 33.7 (Obese) GI/ Skin Integrity GI: WNL, Soft, Round BM: 09/26 x1 I/O: 1060/Not Noted Skin: Rash, Redness Ludwin: 20 Diet Order: Regular Allergy: Gluten Estimated Energy Needs: ( Geriatric, ABW) 8216-3539 kcals (20-25 kcals/ kg) 50-60g Pro (0.8-1.0 g/kg) 8051-1471 ml (20-25 ml/kg) Current Diet Order/ Nutrition Support Regular Patient / S.O Can Pertinent Medications Albuterol (PRN), tums, Oscal with Vitamin D, Zofran Odt ( PRN), Protonix Pertinent Labs 09/22: BUN/Cr 6/0.3, AST 32 Nutritional Hx/Data Height 1.6 m Height (Calculated Centimeters) 160.0 Current Weight (lbs) 86.183 kg Weight (Calculated Kilograms) 86.2 Weight (Calculated Grams) 25514.6 [place] Body Weight 115 LB (52.27 kg) % [place] Body Weight 165 Body Mass Index (BMI) 33.6 Weight Status Obese GI Symptoms Last BM 09/26 x1 Usual diet at home Regular Skin Integrity/Comment: Skin: Rash, Redness Ludwin: 20 Per wound care note (09/27), Extrinsic factors that delay wound healing: Decreased mobility. Gluteal Sulcus Wound is not open, Intertrigo with erythema and moisture associated skin damage, present on admission. Open area has 100% dark pink tissue . Current %PO Fair (50-74%) Estimated Nutritional Goals BEE in Kcals: Adj wt of IBW Calories/Kcals/Kg 20-25 Kcals Calculated 7972-9984 Protein: Adj wt of IBW Protein g/k.8-1.0 Protein Calculated 50-60 Fluid: ml 5932-0746 ml (20-25 ml/kg) Nutritional Problem 1. Problem Problem Obesity Etiology r/t consistent energy overconsumption Signs/Symptoms: aeb BMI 33.7 (pt recollection) . Malnutrition Related to Morbid Obesity Malnutrition related to morbid obesity No Intervention/Recommendation Comments Continue Regular diet as tolerated. Expected Outcomes/Goals Expected Outcomes/Goals 1.PO intake to meet 75% of estimated nutritional needs. 2.Monitor PO intake, wt, nutrition related labs, and skin integrity to trend WNL. 3.F/U as low risk in 7-10 days , 10/03-10/06
--- NOTE | 2019-10-08 21:05 | Progress Notes ---
DATE: 10/08/2019 SUBJECTIVE: Staff was spoken to. The patient is interviewed. Mood is noted to be anxious and depressed. The patient is isolative and withdrawn. The patient is sleeping at this time and answering my questions. artist manager has been spoken to. The patient was interviewed, but the patient did not want to go to that placement. The patient's coping skills are noted to be poor at this time. artist manager has been looking for another option for her and she is going to be presenting with the interview with another placement. It is not very clear whether the patient is going to be accepting that placement or not. ASSESSMENT: The patient's depression is resolving. The patient is not suicidal, but placement is an issue for this patient. PLAN: To continue the patient with the supportive therapy and followup. JOB# [id number]
[2019-10-08] MEDS: Menthol/Zinc Oxide Oint 113gm Tube TP PRN (21:57)
[2019-10-09] MEDS: Pantoprazole 40 mg EC Tab PO SCH (06:56)
[2019-10-09] MEDS: Fluticasone Propionate Nasal 1 SPR SPR NS SCH (09:33)
[2019-10-09] MEDS: Calcium Carb/Vit D 500 mg/200 U Tab PO SCH ×2 (09:33→17:35)
[2019-10-09] MEDS: NYSTATIN 100000 UNITS/GM POWD TP SCH ×3 (09:34→17:59)
--- NOTE | 2019-10-09 10:38 | Internal Medicine Prog Note ---
Internal Medicine Subjective - Subjective Service Date: 10/09/19 Patient is:: awake, verbal, interactive, in bed, denies any new complaints Patient Complaints of:: congestion Per staff patient has:: no adverse event, no episodes of fall, tolerating meds Internal Medicine Objective - Physical Exam Vitals and I&O: Vital Signs Temp 98.1 F 10/08/19 20:03 Pulse 72 10/08/19 20:03 Resp 20 10/08/19 20:03 BP 136/77 10/08/19 20:03 Pulse Ox 97 10/08/19 20:03 Intake & Output 10/08/19 10/09/19 10/09/19 18:59 06:59 18:59 Intake Total 1000 360 Balance 1000 360 Intake: Oral 1000 360 Other: # Voids 4 1 # Bowel Movements 1 0 Active Medications: Current Medications Acetaminophen (Tylenol) 650 mg PO Q4H PRN PRN Reason: Pain (Moderate 4-6) Stop: 11/25/19 14:38 Last Admin: 10/06/19 17:01 Dose: 650 mg Albuterol Sulfate (Albuterol 2.5mg/3ml Neb Ud) 2.5 mg HHN Q6HR PRN PRN Reason: Wheezing Stop: 11/24/19 23:02 Calamine/Phenol (Calmoseptine) 1 appl TP QID PRN PRN Reason: Skin Irritation Stop: 11/26/19 13:26 Last Admin: 10/08/19 21:57 Dose: 1 appl Calcium Carbonate (Tums) 500 mg PO TID PRN PRN Reason: GI DISTRESS Stop: 11/25/19 20:59 Last Admin: 10/02/19 21:12 Dose: 500 mg Calcium/Vitamin D (Oscal W/Vitamin D) 1 tab PO BID EDDIE Stop: 11/25/19 16:59 Last Admin: 10/09/19 09:33 Dose: 1 tab Fluticasone Propionate (Flonase) 2 spr NS DAILY EDDIE Stop: 11/26/19 08:59 Last Admin: 10/09/19 09:33 Dose: 2 spr Hydrocortisone (Hydrocortisone 1%) 1 appl TP DAILY EDDIE Stop: 11/30/19 08:59 Last Admin: 10/08/19 08:58 Dose: 1 appl Loratadine (Claritin) 10 mg PO DAILY EDDIE Stop: 11/25/19 08:59 Last Admin: 10/09/19 09:33 Dose: 10 mg Lorazepam (Ativan) 0.5 mg PO Q6HR PRN; Protocol PRN Reason: Agitation Stop: 11/24/19 23:02 Last Admin: 10/08/19 21:53 Dose: 0.5 mg Magnesium Hydroxide (Milk Of Magnesia) 30 ml PO DAILY PRN PRN Reason: Constipation Stop: 12/03/19 13:14 Last Admin: 10/04/19 13:43 Dose: 30 ml Nystatin (Nystop) 100,000 units TP BID EDDIE Stop: 11/26/19 08:59 Last Admin: 10/09/19 09:34 Dose: 100,000 units Ondansetron HCl (Zofran Odt) 4 mg PO Q8HR PRN PRN Reason: Nausea Stop: 11/24/19 23:02 Last Admin: 10/03/19 08:46 Dose: 4 mg Pantoprazole Sodium (Protonix) 40 mg PO QDAC EDDIE Stop: 11/26/19 07:29 Last Admin: 10/09/19 06:56 Dose: 40 mg Paroxetine HCl (Paxil) 40 mg PO DAILY EDDIE; Protocol Stop: 11/25/19 08:59 Last Admin: 10/09/19 09:34 Dose: 40 mg Trazodone HCl (Desyrel) 100 mg PO HS EDDIE; Protocol Stop: 11/25/19 20:59 Last Admin: 10/08/19 21:41 Dose: 100 mg General: alert, obese HEENT: NC/AT, PERRLA, EOMI Neck: Supple, No JVD, No thyromegaly Lungs: CTAB Cardiovascular: RRR, Normal S1, Normal S2 Abdomen: soft, non-tender, globular, positive bowel sound Extremities: excoriation Neurological: no change Internal Medicine Assmt/Plan - Assessment Assessment: obesity gerd allergic rhinitis oa - Plan Plan: cont on adequate pain rx cont on ppi cont on histamine johanne cpm dw rn Nutritional Asmnt/Malnutr-PDOC - Dietary Evaluation Malnutrition Findings (Please click <Entered> for more info): Nutritional Asmnt/Malnutrition Start: 09/27/19 15: 12 Text: Status: Complete Freq: Protocol: Document 09/27/19 15:33 JEXAMUS (Rec: 09/27/19 15:35 [email or web address] [id number]) Nutritional Asmnt/Malnutrition Patient General Information Nutritional Screening Low Risk Consult Diagnosis Psychosis Pertinent Medical Hx/Surgical Hx GERD, Allergic Rhinitis, Osteoarthritis, Asthma Subjective Information Consult: Intertrigo/Wound Gluteal Sulcus and Gluten Free Dietary Restrictions Pt is a 69-year-old female admitted on 09/25 d/t depression, suicidal ideations . Pt ate 100% meals 09/26. Visited pt around lunch and noticed she only drank her milk. Pt stated she was not hungry at lunch as she ate her breakfast late d/t medication issues and stomach upset. Pt stated she needed some antacids. Talked with pt regarding her dietary restrictions related to Gluten , she understood well, needed no further education. I informed her we made her some Gluten-Free sandwiches if she needed an extra snack between meals. Pt held conversation fine, stated she would eat when her stomach settled, she ate 75% breakfast. Per wound care note (09/27), Extrinsic factors that delay wound healing: Decreased mobility. Gluteal Sulcus Wound is not open, Intertrigo with erythema and moisture associated skin damage, present on admission. Open area has 100% dark pink tissue . Pt weight charted as 109 Lb, the pt looked heavier upon observation when I visited her today. Asked nurse to reweigh pt for accurate estimation of nutritional needs, pt refused, conscious of being overweight. I went in and spoke with pt, she stated she estimates she is around 190 Lbs based on most recent weight check. Will try to reweigh again when pt feels more comfortable. Anthropometrics (based on pt recollection) HT: 53 WT: 190 LB (86.36 kg) ABW: 135 LB (60.80 kg) BMI: 33.7 (Obese) GI/ Skin Integrity GI: WNL, Soft, Round BM: 09/26 x1 I/O: 1060/Not Noted Skin: Rash, Redness Ludwin: 20 Diet Order: Regular Allergy: Gluten Estimated Energy Needs: ( Geriatric, ABW) 5060-2476 kcals (20-25 kcals/ kg) 50-60g Pro (0.8-1.0 g/kg) 1110-3828 ml (20-25 ml/kg) Current Diet Order/ Nutrition Support Regular Patient / S.O Can Pertinent Medications Albuterol (PRN), tums, Oscal with Vitamin D, Zofran Odt ( PRN), Protonix Pertinent Labs 09/22: BUN/Cr 6/0.3, AST 32 Nutritional Hx/Data Height 5 ft 3 in Height (Calculated Centimeters) 160.0 Current Weight (lbs) 190 lb Weight (Calculated Kilograms) 86.2 Weight (Calculated Grams) 58944.6 [place] Body Weight 115 LB (52.27 kg) % [place] Body Weight 165 Body Mass Index (BMI) 33.6 Weight Status Obese GI Symptoms Last BM 09/26 x1 Usual diet at home Regular Skin Integrity/Comment: Skin: Rash, Redness Ludwin: 20 Per wound care note (09/27), Extrinsic factors that delay wound healing: Decreased mobility. Gluteal Sulcus Wound is not open, Intertrigo with erythema and moisture associated skin damage, present on admission. Open area has 100% dark pink tissue . Current %PO Fair (50-74%) Estimated Nutritional Goals BEE in Kcals: Adj wt of IBW Calories/Kcals/Kg 20-25 Kcals Calculated 3998-0327 Protein: Adj wt of IBW Protein g/k.8-1.0 Protein Calculated 50-60 Fluid: ml 7654-4324 ml (20-25 ml/kg) Nutritional Problem 1. Problem Problem Obesity Etiology r/t consistent energy overconsumption Signs/Symptoms: aeb BMI 33.7 (pt recollection) . Malnutrition Related to Morbid Obesity Malnutrition related to morbid obesity No Intervention/Recommendation Comments Continue Regular diet as tolerated. Expected Outcomes/Goals Expected Outcomes/Goals 1.PO intake to meet 75% of estimated nutritional needs. 2.Monitor PO intake, wt, nutrition related labs, and skin integrity to trend WNL. 3.F/U as low risk in 7-10 days , 10/03-10/06
--- NOTE | 2019-10-09 18:27 | Progress Notes ---
DATE: 10/09/2019 PSYCHIATRIC PROGRESS NOTE SUBJECTIVE: Staff was spoken to. The patient is interviewed. Mood is noted to be irritable. Affect is constricted. The patient is stating that she is not being properly cared for and the patient is going on and on stating that without her concern someone has been brought to interview her for placement and she states she does not like it. The patient is stating that she has contacted someone and they are going to be helping her. The patient is stating that she is going to be hearing about the placement later today or tomorrow or at least by Friday. ASSESSMENT: The patient is awaiting placement. PLAN: To continue the patient with the supportive therapy and followup. [facility]# [id number]
[2019-10-10] MEDS: Pantoprazole 40 mg EC Tab PO SCH (06:53)
[2019-10-10] MEDS: Menthol/Zinc Oxide Oint 113gm Tube TP PRN (08:26)
--- NOTE | 2019-10-10 09:01 | Internal Medicine Prog Note ---
Internal Medicine Subjective - Subjective Service Date: 10/10/19 Patient is:: awake, verbal, interactive, in bed, denies any new complaints Patient Complaints of:: congestion Per staff patient has:: no adverse event, no episodes of fall, tolerating meds Internal Medicine Objective - Physical Exam Vitals and I&O: Vital Signs Temp 97.5 F 10/09/19 21:09 Pulse 77 10/09/19 21:09 Resp 20 10/09/19 21:09 BP 129/75 10/09/19 21:09 Pulse Ox 91 10/09/19 21:09 Intake & Output 10/09/19 10/10/19 10/10/19 18:59 06:59 18:59 Intake Total 1200 160 Balance 1200 160 Intake: Oral 1200 160 Other: # Voids 4 2 # Bowel Movements 0 0 Active Medications: Current Medications Acetaminophen (Tylenol) 650 mg PO Q4H PRN PRN Reason: Pain (Moderate 4-6) Stop: 11/25/19 14:38 Last Admin: 10/06/19 17:01 Dose: 650 mg Albuterol Sulfate (Albuterol 2.5mg/3ml Neb Ud) 2.5 mg HHN Q6HR PRN PRN Reason: Wheezing Stop: 11/24/19 23:02 Calamine/Phenol (Calmoseptine) 1 appl TP QID PRN PRN Reason: Skin Irritation Stop: 11/26/19 13:26 Last Admin: 10/10/19 08:26 Dose: 1 appl Calcium Carbonate (Tums) 500 mg PO TID PRN PRN Reason: GI DISTRESS Stop: 11/25/19 20:59 Last Admin: 10/02/19 21:12 Dose: 500 mg Calcium/Vitamin D (Oscal W/Vitamin D) 1 tab PO BID EDDIE Stop: 11/25/19 16:59 Last Admin: 10/09/19 17:35 Dose: 1 tab Fluticasone Propionate (Flonase) 2 spr NS DAILY EDDIE Stop: 11/26/19 08:59 Last Admin: 10/09/19 09:33 Dose: 2 spr Hydrocortisone (Hydrocortisone 1%) 1 appl TP DAILY EDDIE Stop: 11/30/19 08:59 Last Admin: 10/09/19 09:51 Dose: 1 appl Loratadine (Claritin) 10 mg PO DAILY EDDIE Stop: 11/25/19 08:59 Last Admin: 10/09/19 09:33 Dose: 10 mg Lorazepam (Ativan) 0.5 mg PO Q6HR PRN; Protocol PRN Reason: Agitation Stop: 11/24/19 23:02 Last Admin: 10/09/19 22:03 Dose: 0.5 mg Magnesium Hydroxide (Milk Of Magnesia) 30 ml PO DAILY PRN PRN Reason: Constipation Stop: 12/03/19 13:14 Last Admin: 10/04/19 13:43 Dose: 30 ml Nystatin (Nystop) 100,000 units TP BID EDDIE Stop: 11/26/19 08:59 Last Admin: 10/09/19 17:59 Dose: Not Given Ondansetron HCl (Zofran Odt) 4 mg PO Q8HR PRN PRN Reason: Nausea Stop: 11/24/19 23:02 Last Admin: 10/03/19 08:46 Dose: 4 mg Pantoprazole Sodium (Protonix) 40 mg PO QDAC EDDIE Stop: 11/26/19 07:29 Last Admin: 10/10/19 06:53 Dose: 40 mg Paroxetine HCl (Paxil) 40 mg PO DAILY EDDIE; Protocol Stop: 11/25/19 08:59 Last Admin: 10/09/19 09:34 Dose: 40 mg Trazodone HCl (Desyrel) 100 mg PO HS EDDIE; Protocol Stop: 11/25/19 20:59 Last Admin: 10/09/19 21:54 Dose: 100 mg General: alert, obese HEENT: NC/AT, PERRLA, EOMI Neck: Supple, No JVD, No thyromegaly Lungs: CTAB Cardiovascular: RRR, Normal S1, Normal S2 Abdomen: soft, non-tender, globular, positive bowel sound Extremities: excoriation Neurological: no change Internal Medicine Assmt/Plan - Assessment Assessment: obesity gerd allergic rhinitis oa - Plan Plan: cont on adequate pain rx cont on ppi cont on histamine johanne cpm dw rn Nutritional Asmnt/Malnutr-PDOC - Dietary Evaluation Malnutrition Findings (Please click <Entered> for more info): Nutritional Asmnt/Malnutrition Start: 09/27/19 15: 12 Text: Status: Complete Freq: Protocol: Document 09/27/19 15:33 JEXAMUS (Rec: 09/27/19 15:35 [email or web address] [id number]) Nutritional Asmnt/Malnutrition Patient General Information Nutritional Screening Low Risk Consult Diagnosis Psychosis Pertinent Medical Hx/Surgical Hx GERD, Allergic Rhinitis, Osteoarthritis, Asthma Subjective Information Consult: Intertrigo/Wound Gluteal Sulcus and Gluten Free Dietary Restrictions Pt is a 69-year-old female admitted on 09/25 d/t depression, suicidal ideations . Pt ate 100% meals 09/26. Visited pt around lunch and noticed she only drank her milk. Pt stated she was not hungry at lunch as she ate her breakfast late d/t medication issues and stomach upset. Pt stated she needed some antacids. Talked with pt regarding her dietary restrictions related to Gluten , she understood well, needed no further education. I informed her we made her some Gluten-Free sandwiches if she needed an extra snack between meals. Pt held conversation fine, stated she would eat when her stomach settled, she ate 75% breakfast. Per wound care note (09/27), Extrinsic factors that delay wound healing: Decreased mobility. Gluteal Sulcus Wound is not open, Intertrigo with erythema and moisture associated skin damage, present on admission. Open area has 100% dark pink tissue . Pt weight charted as 109 Lb, the pt looked heavier upon observation when I visited her today. Asked nurse to reweigh pt for accurate estimation of nutritional needs, pt refused, conscious of being overweight. I went in and spoke with pt, she stated she estimates she is around 190 Lbs based on most recent weight check. Will try to reweigh again when pt feels more comfortable. Anthropometrics (based on pt recollection) HT: 53 WT: 190 LB (86.36 kg) ABW: 135 LB (60.80 kg) BMI: 33.7 (Obese) GI/ Skin Integrity GI: WNL, Soft, Round BM: 09/26 x1 I/O: 1060/Not Noted Skin: Rash, Redness Ludwin: 20 Diet Order: Regular Allergy: Gluten Estimated Energy Needs: ( Geriatric, ABW) 3584-7459 kcals (20-25 kcals/ kg) 50-60g Pro (0.8-1.0 g/kg) 5690-4808 ml (20-25 ml/kg) Current Diet Order/ Nutrition Support Regular Patient / S.O Can Pertinent Medications Albuterol (PRN), tums, Oscal with Vitamin D, Zofran Odt ( PRN), Protonix Pertinent Labs 09/22: BUN/Cr 6/0.3, AST 32 Nutritional Hx/Data Height 5 ft 3 in Height (Calculated Centimeters) 160.0 Current Weight (lbs) 190 lb Weight (Calculated Kilograms) 86.2 Weight (Calculated Grams) 93470.6 [place] Body Weight 115 LB (52.27 kg) % [place] Body Weight 165 Body Mass Index (BMI) 33.6 Weight Status Obese GI Symptoms Last BM 09/26 x1 Usual diet at home Regular Skin Integrity/Comment: Skin: Rash, Redness Ludwin: 20 Per wound care note (09/27), Extrinsic factors that delay wound healing: Decreased mobility. Gluteal Sulcus Wound is not open, Intertrigo with erythema and moisture associated skin damage, present on admission. Open area has 100% dark pink tissue . Current %PO Fair (50-74%) Estimated Nutritional Goals BEE in Kcals: Adj wt of IBW Calories/Kcals/Kg 20-25 Kcals Calculated 8413-6634 Protein: Adj wt of IBW Protein g/k.8-1.0 Protein Calculated 50-60 Fluid: ml 2493-5476 ml (20-25 ml/kg) Nutritional Problem 1. Problem Problem Obesity Etiology r/t consistent energy overconsumption Signs/Symptoms: aeb BMI 33.7 (pt recollection) . Malnutrition Related to Morbid Obesity Malnutrition related to morbid obesity No Intervention/Recommendation Comments Continue Regular diet as tolerated. Expected Outcomes/Goals Expected Outcomes/Goals 1.PO intake to meet 75% of estimated nutritional needs. 2.Monitor PO intake, wt, nutrition related labs, and skin integrity to trend WNL. 3.F/U as low risk in 7-10 days , 10/03-10/06
[2019-10-10] MEDS: Calcium Carb/Vit D 500 mg/200 U Tab PO SCH ×2 (10:00→17:18)
[2019-10-10] MEDS: Fluticasone Propionate Nasal 1 SPR SPR NS SCH (10:00)
[2019-10-10] MEDS: NYSTATIN 100000 UNITS/GM POWD TP SCH ×2 (10:00→17:18)
--- NOTE | 2019-10-10 20:41 | Progress Notes ---
DATE: 10/10/2019 PSYCHIATRIC PROGRESS NOTE SUBJECTIVE: Staff was spoken to. The patient is interviewed. Mood is noted to be irritable. Affect is constricted. Insight and judgment are noted to be still impaired. Impulse control is noted to be limited. Coping skills are noted to be limited. The patient has been having difficult time to cope with the stress. The patient is stating that she is not getting the food without gluten and the patient is also stating that it is difficult for her to walk. The patient has been coming with the multiple complaints and so far no placement has been available yet. ASSESSMENT: The patient is still depressed and awaiting placement. PLAN: To continue the patient with the supportive therapy and followup. [facility]# [id number]
[2019-10-11] MEDS: Pantoprazole 40 mg EC Tab PO SCH (06:47)
[2019-10-11] MEDS: Fluticasone Propionate Nasal 1 SPR SPR NS SCH (08:58)
[2019-10-11] MEDS: Menthol/Zinc Oxide Oint 113gm Tube TP PRN (08:58)
[2019-10-11] MEDS: Calcium Carb/Vit D 500 mg/200 U Tab PO SCH ×2 (08:58→17:25)
[2019-10-11] MEDS: NYSTATIN 100000 UNITS/GM POWD TP SCH ×2 (08:59→17:25)
--- NOTE | 2019-10-11 12:30 | Internal Medicine Prog Note ---
Internal Medicine Subjective - Subjective Patient seen and examined:: with staff, chart reviewed Patient is:: awake, verbal, interactive, in bed, denies any new complaints Patient Complaints of:: congestion Per staff patient has:: no adverse event, no episodes of fall, tolerating meds Internal Medicine Objective - Physical Exam Vitals and I&O: Vital Signs Temp 97.8 F 10/10/19 20:54 Pulse 81 10/10/19 20:54 Resp 20 10/10/19 20:54 BP 125/75 10/10/19 20:54 Pulse Ox 91 10/10/19 20:54 Intake & Output 10/10/19 10/11/19 10/11/19 18:59 06:59 18:59 Intake Total 1280 240 Balance 1280 240 Intake: Oral 1280 240 Other: # Voids 3 2 # Bowel Movements 0 Active Medications: Current Medications Acetaminophen (Tylenol) 650 mg PO Q4H PRN PRN Reason: Pain (Moderate 4-6) Stop: 11/25/19 14:38 Last Admin: 10/06/19 17:01 Dose: 650 mg Albuterol Sulfate (Albuterol 2.5mg/3ml Neb Ud) 2.5 mg HHN Q6HR PRN PRN Reason: Wheezing Stop: 11/24/19 23:02 Calamine/Phenol (Calmoseptine) 1 appl TP QID PRN PRN Reason: Skin Irritation Stop: 11/26/19 13:26 Last Admin: 10/11/19 08:58 Dose: 1 appl Calcium Carbonate (Tums) 500 mg PO TID PRN PRN Reason: GI DISTRESS Stop: 11/25/19 20:59 Last Admin: 10/02/19 21:12 Dose: 500 mg Calcium/Vitamin D (Oscal W/Vitamin D) 1 tab PO BID EDDIE Stop: 11/25/19 16:59 Last Admin: 10/11/19 08:58 Dose: 1 tab Fluticasone Propionate (Flonase) 2 spr NS DAILY EDDIE Stop: 11/26/19 08:59 Last Admin: 10/11/19 08:58 Dose: 2 spr Hydrocortisone (Hydrocortisone 1%) 1 appl TP DAILY EDDIE Stop: 11/30/19 08:59 Last Admin: 10/11/19 08:58 Dose: 1 appl Loratadine (Claritin) 10 mg PO DAILY EDDIE Stop: 11/25/19 08:59 Last Admin: 10/11/19 08:58 Dose: 10 mg Lorazepam (Ativan) 0.5 mg PO Q6HR PRN; Protocol PRN Reason: Agitation Stop: 11/24/19 23:02 Last Admin: 10/10/19 21:46 Dose: 0.5 mg Magnesium Hydroxide (Milk Of Magnesia) 30 ml PO DAILY PRN PRN Reason: Constipation Stop: 12/03/19 13:14 Last Admin: 10/04/19 13:43 Dose: 30 ml Nystatin (Nystop) 100,000 units TP BID EDDIE Stop: 11/26/19 08:59 Last Admin: 10/11/19 08:59 Dose: 100,000 units Ondansetron HCl (Zofran Odt) 4 mg PO Q8HR PRN PRN Reason: Nausea Stop: 11/24/19 23:02 Last Admin: 10/03/19 08:46 Dose: 4 mg Pantoprazole Sodium (Protonix) 40 mg PO QDAC EDDIE Stop: 11/26/19 07:29 Last Admin: 10/11/19 06:47 Dose: 40 mg Paroxetine HCl (Paxil) 40 mg PO DAILY EDDIE; Protocol Stop: 11/25/19 08:59 Last Admin: 10/11/19 08:58 Dose: 40 mg Trazodone HCl (Desyrel) 100 mg PO HS EDDIE; Protocol Stop: 11/25/19 20:59 Last Admin: 10/10/19 20:17 Dose: 100 mg General: alert, obese HEENT: NC/AT, PERRLA, EOMI Neck: Supple, No JVD, No thyromegaly Lungs: CTAB Cardiovascular: RRR, Normal S1, Normal S2 Abdomen: soft, non-tender, globular, positive bowel sound Extremities: excoriation Neurological: no change Internal Medicine Assmt/Plan - Assessment Assessment: obesity gerd allergic rhinitis oa - Plan Plan: cont on adequate pain rx cont on ppi cont on histamine johanne cpm dw rn cxr - Nutritional Asmnt/Malnutr-PDOC - Dietary Evaluation Malnutrition Findings (Please click <Entered> for more info): Nutritional Asmnt/Malnutrition Start: 09/27/19 15: 12 Text: Status: Complete Freq: Protocol: Document 09/27/19 15:33 JEXAMUS (Rec: 09/27/19 15:35 [email or web address] [id number]) Nutritional Asmnt/Malnutrition Patient General Information Nutritional Screening Low Risk Consult Diagnosis Psychosis Pertinent Medical Hx/Surgical Hx GERD, Allergic Rhinitis, Osteoarthritis, Asthma Subjective Information Consult: Intertrigo/Wound Gluteal Sulcus and Gluten Free Dietary Restrictions Pt is a 69-year-old female admitted on 09/25 d/t depression, suicidal ideations . Pt ate 100% meals 09/26. Visited pt around lunch and noticed she only drank her milk. Pt stated she was not hungry at lunch as she ate her breakfast late d/t medication issues and stomach upset. Pt stated she needed some antacids. Talked with pt regarding her dietary restrictions related to Gluten , she understood well, needed no further education. I informed her we made her some Gluten-Free sandwiches if she needed an extra snack between meals. Pt held conversation fine, stated she would eat when her stomach settled, she ate 75% breakfast. Per wound care note (09/27), Extrinsic factors that delay wound healing: Decreased mobility. Gluteal Sulcus Wound is not open, Intertrigo with erythema and moisture associated skin damage, present on admission. Open area has 100% dark pink tissue . Pt weight charted as 109 Lb, the pt looked heavier upon observation when I visited her today. Asked nurse to reweigh pt for accurate estimation of nutritional needs, pt refused, conscious of being overweight. I went in and spoke with pt, she stated she estimates she is around 190 Lbs based on most recent weight check. Will try to reweigh again when pt feels more comfortable. Anthropometrics (based on pt recollection) HT: 53 WT: 190 LB (86.36 kg) ABW: 135 LB (60.80 kg) BMI: 33.7 (Obese) GI/ Skin Integrity GI: WNL, Soft, Round BM: 09/26 x1 I/O: 1060/Not Noted Skin: Rash, Redness Ludwin: 20 Diet Order: Regular Allergy: Gluten Estimated Energy Needs: ( Geriatric, ABW) 4165-8018 kcals (20-25 kcals/ kg) 50-60g Pro (0.8-1.0 g/kg) 3521-4687 ml (20-25 ml/kg) Current Diet Order/ Nutrition Support Regular Patient / S.O Can Pertinent Medications Albuterol (PRN), tums, Oscal with Vitamin D, Zofran Odt ( PRN), Protonix Pertinent Labs 09/22: BUN/Cr 6/0.3, AST 32 Nutritional Hx/Data Height 1.6 m Height (Calculated Centimeters) 160.0 Current Weight (lbs) 86.183 kg Weight (Calculated Kilograms) 86.2 Weight (Calculated Grams) 25247.6 [place] Body Weight 115 LB (52.27 kg) % [place] Body Weight 165 Body Mass Index (BMI) 33.6 Weight Status Obese GI Symptoms Last BM 09/26 x1 Usual diet at home Regular Skin Integrity/Comment: Skin: Rash, Redness Ludwin: 20 Per wound care note (09/27), Extrinsic factors that delay wound healing: Decreased mobility. Gluteal Sulcus Wound is not open, Intertrigo with erythema and moisture associated skin damage, present on admission. Open area has 100% dark pink tissue . Current %PO Fair (50-74%) Estimated Nutritional Goals BEE in Kcals: Adj wt of IBW Calories/Kcals/Kg 20-25 Kcals Calculated 7119-7513 Protein: Adj wt of IBW Protein g/k.8-1.0 Protein Calculated 50-60 Fluid: ml 7482-8373 ml (20-25 ml/kg) Nutritional Problem 1. Problem Problem Obesity Etiology r/t consistent energy overconsumption Signs/Symptoms: aeb BMI 33.7 (pt recollection) . Malnutrition Related to Morbid Obesity Malnutrition related to morbid obesity No Intervention/Recommendation Comments Continue Regular diet as tolerated. Expected Outcomes/Goals Expected Outcomes/Goals 1.PO intake to meet 75% of estimated nutritional needs. 2.Monitor PO intake, wt, nutrition related labs, and skin integrity to trend WNL. 3.F/U as low risk in 7-10 days , 10/03-10/06
--- NOTE | 2019-10-11 21:41 | Progress Notes ---
DATE: 10/11/2019 PSYCHIATRIC PROGRESS NOTE SUBJECTIVE: Staff was spoken to. The patient is interviewed. Mood is noted to be irritable and affect is constricted. The patient is stating that she is frustrated that she is not getting the help that she needs from the psych social worker. The patient has been stating that she is doing all the work and the hospital is trying to force her to get out of here. The patient has been getting easily upset. The patient is not suicidal or homicidal. The patient is stating that she is looking for a decent place to live. She states that she found a place that she is asking for $1500 a month, is a 4-bed house and the patient is stating that possibly she is going to be going there. ASSESSMENT: The patient is stabilizing and awaiting placement. PLAN: To continue the patient with the supportive therapy and followup. JOB# [id number]
[2019-10-12] MEDS: Pantoprazole 40 mg EC Tab PO SCH (06:51)
[2019-10-12] MEDS: Menthol/Zinc Oxide Oint 113gm Tube TP PRN (09:25)
[2019-10-12] MEDS: NYSTATIN 100000 UNITS/GM POWD TP SCH ×2 (09:25→16:26)
[2019-10-12] MEDS: Fluticasone Propionate Nasal 1 SPR SPR NS SCH (09:25)
[2019-10-12] MEDS: Calcium Carb/Vit D 500 mg/200 U Tab PO SCH ×2 (09:26→16:26)
--- NOTE | 2019-10-12 13:03 | Internal Medicine Prog Note ---
Internal Medicine Subjective - Subjective Patient seen and examined:: with staff, chart reviewed Patient is:: awake, verbal, interactive, in bed, denies any new complaints Patient Complaints of:: congestion Per staff patient has:: no adverse event, no episodes of fall, tolerating meds Internal Medicine Objective - Physical Exam Vitals and I&O: Vital Signs Temp 0 F 10/12/19 06:43 Pulse 77 10/11/19 20:14 Resp 19 10/11/19 20:14 BP 118/77 10/11/19 20:14 Pulse Ox 98 10/11/19 20:14 Intake & Output 10/11/19 10/12/19 10/12/19 18:59 06:59 18:59 Intake Total 950 240 Balance 950 240 Intake: Oral 950 240 Other: # Voids 2 # Bowel Movements 1 0 Active Medications: Current Medications Acetaminophen (Tylenol) 650 mg PO Q4H PRN PRN Reason: Pain (Moderate 4-6) Stop: 11/25/19 14:38 Last Admin: 10/11/19 17:25 Dose: 650 mg Albuterol Sulfate (Albuterol 2.5mg/3ml Neb Ud) 2.5 mg HHN Q6HR PRN PRN Reason: Wheezing Stop: 11/24/19 23:02 Ascorbic Acid (Vitamin C) 500 mg PO DAILY EDDIE Stop: 12/11/19 08:59 Last Admin: 10/12/19 09:26 Dose: 500 mg Calamine/Phenol (Calmoseptine) 1 appl TP QID PRN PRN Reason: Skin Irritation Stop: 11/26/19 13:26 Last Admin: 10/12/19 09:25 Dose: 1 appl Calcium Carbonate (Tums) 500 mg PO TID PRN PRN Reason: GI DISTRESS Stop: 11/25/19 20:59 Last Admin: 10/02/19 21:12 Dose: 500 mg Calcium/Vitamin D (Oscal W/Vitamin D) 1 tab PO BID EDDIE Stop: 11/25/19 16:59 Last Admin: 10/12/19 09:26 Dose: 1 tab Fluticasone Propionate (Flonase) 2 spr NS DAILY EDDIE Stop: 11/26/19 08:59 Last Admin: 10/12/19 09:25 Dose: 2 spr Hydrocortisone (Hydrocortisone 1%) 1 appl TP DAILY EDDIE Stop: 11/30/19 08:59 Last Admin: 10/12/19 09:25 Dose: 1 appl Loratadine (Claritin) 10 mg PO DAILY EDDIE Stop: 11/25/19 08:59 Last Admin: 10/12/19 09:26 Dose: 10 mg Lorazepam (Ativan) 0.5 mg PO Q6HR PRN; Protocol PRN Reason: Agitation Stop: 11/24/19 23:02 Last Admin: 10/11/19 20:48 Dose: 0.5 mg Magnesium Hydroxide (Milk Of Magnesia) 30 ml PO DAILY PRN PRN Reason: Constipation Stop: 12/03/19 13:14 Last Admin: 10/04/19 13:43 Dose: 30 ml Nystatin (Nystop) 100,000 units TP BID EDDIE Stop: 11/26/19 08:59 Last Admin: 10/12/19 09:25 Dose: 100,000 units Ondansetron HCl (Zofran Odt) 4 mg PO Q8HR PRN PRN Reason: Nausea Stop: 11/24/19 23:02 Last Admin: 10/03/19 08:46 Dose: 4 mg Pantoprazole Sodium (Protonix) 40 mg PO QDAC EDDIE Stop: 11/26/19 07:29 Last Admin: 10/12/19 06:51 Dose: 40 mg Paroxetine HCl (Paxil) 40 mg PO DAILY [facility]; Protocol Stop: 11/25/19 08:59 Last Admin: 10/12/19 09:26 Dose: 40 mg Trazodone HCl (Desyrel) 100 mg PO HS EDDIE; Protocol Stop: 11/25/19 20:59 Last Admin: 10/11/19 20:48 Dose: 100 mg General: alert, obese HEENT: NC/AT, PERRLA, EOMI Neck: Supple, No JVD, No thyromegaly Lungs: CTAB Cardiovascular: RRR, Normal S1, Normal S2 Abdomen: soft, non-tender, globular, positive bowel sound Extremities: excoriation Neurological: no change Internal Medicine Assmt/Plan - Assessment Assessment: obesity gerd allergic rhinitis oa - Plan Plan: cont on adequate pain rx cont on ppi cont on histamine johanne cpm dw rn cxr - Nutritional Asmnt/Malnutr-PDOC - Dietary Evaluation Malnutrition Findings (Please click <Entered> for more info): Nutritional Asmnt/Malnutrition Start: 09/27/19 15: 12 Text: Status: Complete Freq: Protocol: Document 09/27/19 15:33 MAHIN (Rec: 09/27/19 15:35 MAHIN [id number]) Nutritional Asmnt/Malnutrition Patient General Information Nutritional Screening Low Risk Consult Diagnosis Psychosis Pertinent Medical Hx/Surgical Hx GERD, Allergic Rhinitis, Osteoarthritis, Asthma Subjective Information Consult: Intertrigo/Wound Gluteal Sulcus and Gluten Free Dietary Restrictions Pt is a 69-year-old female admitted on 09/25 d/t depression, suicidal ideations . Pt ate 100% meals 09/26. Visited pt around lunch and noticed she only drank her milk. Pt stated she was not hungry at lunch as she ate her breakfast late d/t medication issues and stomach upset. Pt stated she needed some antacids. Talked with pt regarding her dietary restrictions related to Gluten , she understood well, needed no further education. I informed her we made her some Gluten-Free sandwiches if she needed an extra snack between meals. Pt held conversation fine, stated she would eat when her stomach settled, she ate 75% breakfast. Per wound care note (09/27), Extrinsic factors that delay wound healing: Decreased mobility. Gluteal Sulcus Wound is not open, Intertrigo with erythema and moisture associated skin damage, present on admission. Open area has 100% dark pink tissue . Pt weight charted as 109 Lb, the pt looked heavier upon observation when I visited her today. Asked nurse to reweigh pt for accurate estimation of nutritional needs, pt refused, conscious of being overweight. I went in and spoke with pt, she stated she estimates she is around 190 Lbs based on most recent weight check. Will try to reweigh again when pt feels more comfortable. Anthropometrics (based on pt recollection) HT: 53 WT: 190 LB (86.36 kg) ABW: 135 LB (60.80 kg) BMI: 33.7 (Obese) GI/ Skin Integrity GI: WNL, Soft, Round BM: 09/26 x1 I/O: 1060/Not Noted Skin: Rash, Redness Ludwin: 20 Diet Order: Regular Allergy: Gluten Estimated Energy Needs: ( Geriatric, ABW) 9949-4619 kcals (20-25 kcals/ kg) 50-60g Pro (0.8-1.0 g/kg) 4239-8966 ml (20-25 ml/kg) Current Diet Order/ Nutrition Support Regular Patient / S.O Can Pertinent Medications Albuterol (PRN), tums, Oscal with Vitamin D, Zofran Odt ( PRN), Protonix Pertinent Labs 09/22: BUN/Cr 6/0.3, AST 32 Nutritional Hx/Data Height 1.6 m Height (Calculated Centimeters) 160.0 Current Weight (lbs) 86.183 kg Weight (Calculated Kilograms) 86.2 Weight (Calculated Grams) 86546.6 [place] Body Weight 115 LB (52.27 kg) % [place] Body Weight 165 Body Mass Index (BMI) 33.6 Weight Status Obese GI Symptoms Last BM 09/26 x1 Usual diet at home Regular Skin Integrity/Comment: Skin: Rash, Redness Ludwin: 20 Per wound care note (09/27), Extrinsic factors that delay wound healing: Decreased mobility. Gluteal Sulcus Wound is not open, Intertrigo with erythema and moisture associated skin damage, present on admission. Open area has 100% dark pink tissue . Current %PO Fair (50-74%) Estimated Nutritional Goals BEE in Kcals: Adj wt of IBW Calories/Kcals/Kg 20-25 Kcals Calculated 1297-9124 Protein: Adj wt of IBW Protein g/k.8-1.0 Protein Calculated 50-60 Fluid: ml 5540-2549 ml (20-25 ml/kg) Nutritional Problem 1. Problem Problem Obesity Etiology r/t consistent energy overconsumption Signs/Symptoms: aeb BMI 33.7 (pt recollection) . Malnutrition Related to Morbid Obesity Malnutrition related to morbid obesity No Intervention/Recommendation Comments Continue Regular diet as tolerated. Expected Outcomes/Goals Expected Outcomes/Goals 1.PO intake to meet 75% of estimated nutritional needs. 2.Monitor PO intake, wt, nutrition related labs, and skin integrity to trend WNL. 3.F/U as low risk in 7-10 days , 10/03-10/06
--- NOTE | 2019-10-13 03:03 | Progress Notes ---
DATE: 10/12/2019 SUBJECTIVE: Staff was spoken to. The patient is interviewed. Mood is noted to irritable. Affect is constricted. The patient is isolative and withdrawn. Insight and judgment are noted to be still impaired. Impulse control seems to be limited. Coping skills are noted to be limited. The patient has been having difficult time to cope with the stress. No side effects to the medications are noted at this time. The patient is awaiting placement. The patient is fixated on going to a place where there are only 4 beds and she ____ it is within her means. ASSESSMENT: The patient is stabilizing and awaiting placement. PLAN: To continue the patient with the supportive therapy and followup. [facility]# [id number]
[2019-10-13] MEDS: Pantoprazole 40 mg EC Tab PO SCH (06:49)
[2019-10-13] MEDS: Fluticasone Propionate Nasal 1 SPR SPR NS SCH (09:26)
[2019-10-13] MEDS: Calcium Carb/Vit D 500 mg/200 U Tab PO SCH ×2 (09:26→16:41)
[2019-10-13] MEDS: Menthol/Zinc Oxide Oint 113gm Tube TP PRN (09:26)
[2019-10-13] MEDS: NYSTATIN 100000 UNITS/GM POWD TP SCH ×2 (09:26→16:41)
--- NOTE | 2019-10-13 13:16 | Internal Medicine Prog Note ---
Internal Medicine Subjective - Subjective Patient seen and examined:: with staff, chart reviewed Patient is:: awake, verbal, interactive, in bed, denies any new complaints Patient Complaints of:: congestion Per staff patient has:: no adverse event, no episodes of fall, tolerating meds Internal Medicine Objective - Physical Exam Vitals and I&O: Vital Signs Temp 0 F 10/13/19 06:37 Pulse 79 10/12/19 23:31 Resp 20 10/12/19 23:31 BP 124/72 10/12/19 23:31 Pulse Ox 92 10/12/19 23:31 Intake & Output 10/12/19 10/13/19 10/13/19 18:59 06:59 18:59 Intake Total 1540 120 Balance 1540 120 Intake: Oral 1080 120 Other 460 Other: # Voids 4 3 # Bowel Movements 1 0 Active Medications: Current Medications Acetaminophen (Tylenol) 650 mg PO Q4H PRN PRN Reason: Pain (Moderate 4-6) Stop: 11/25/19 14:38 Last Admin: 10/11/19 17:25 Dose: 650 mg Albuterol Sulfate (Albuterol 2.5mg/3ml Neb Ud) 2.5 mg HHN Q6HR PRN PRN Reason: Wheezing Stop: 11/24/19 23:02 Ascorbic Acid (Vitamin C) 500 mg PO DAILY EDDIE Stop: 12/11/19 08:59 Last Admin: 10/13/19 09:26 Dose: 500 mg Calamine/Phenol (Calmoseptine) 1 appl TP QID PRN PRN Reason: Skin Irritation Stop: 11/26/19 13:26 Last Admin: 10/13/19 09:26 Dose: 1 appl Calcium Carbonate (Tums) 500 mg PO TID PRN PRN Reason: GI DISTRESS Stop: 11/25/19 20:59 Last Admin: 10/02/19 21:12 Dose: 500 mg Calcium/Vitamin D (Oscal W/Vitamin D) 1 tab PO BID EDDIE Stop: 11/25/19 16:59 Last Admin: 10/13/19 09:26 Dose: 1 tab Fluticasone Propionate (Flonase) 2 spr NS DAILY EDDIE Stop: 11/26/19 08:59 Last Admin: 10/13/19 09:26 Dose: 2 spr Hydrocortisone (Hydrocortisone 1%) 1 appl TP DAILY EDDIE Stop: 11/30/19 08:59 Last Admin: 10/13/19 09:26 Dose: 1 appl Loratadine (Claritin) 10 mg PO DAILY EDDIE Stop: 11/25/19 08:59 Last Admin: 10/13/19 09:26 Dose: 10 mg Lorazepam (Ativan) 0.5 mg PO Q6HR PRN; Protocol PRN Reason: Agitation Stop: 11/24/19 23:02 Last Admin: 10/12/19 22:00 Dose: 0.5 mg Magnesium Hydroxide (Milk Of Magnesia) 30 ml PO DAILY PRN PRN Reason: Constipation Stop: 12/03/19 13:14 Last Admin: 10/04/19 13:43 Dose: 30 ml Nystatin (Nystop) 100,000 units TP BID EDDIE Stop: 11/26/19 08:59 Last Admin: 10/13/19 09:26 Dose: 100,000 units Ondansetron HCl (Zofran Odt) 4 mg PO Q8HR PRN PRN Reason: Nausea Stop: 11/24/19 23:02 Last Admin: 10/03/19 08:46 Dose: 4 mg Pantoprazole Sodium (Protonix) 40 mg PO QDAC EDDIE Stop: 11/26/19 07:29 Last Admin: 10/13/19 06:49 Dose: 40 mg Paroxetine HCl (Paxil) 40 mg PO DAILY [facility]; Protocol Stop: 11/25/19 08:59 Last Admin: 10/13/19 09:26 Dose: 40 mg Trazodone HCl (Desyrel) 100 mg PO HS EDDIE; Protocol Stop: 11/25/19 20:59 Last Admin: 10/12/19 20:44 Dose: 100 mg General: alert, obese HEENT: NC/AT, PERRLA, EOMI Neck: Supple, No JVD, No thyromegaly Lungs: CTAB Cardiovascular: RRR, Normal S1, Normal S2 Abdomen: soft, non-tender, globular, positive bowel sound Extremities: excoriation Neurological: no change Internal Medicine Assmt/Plan - Assessment Assessment: obesity gerd allergic rhinitis oa - Plan Plan: cont on adequate pain rx cont on ppi cont on histamine johanne cpm dw rn cxr - Nutritional Asmnt/Malnutr-PDOC - Dietary Evaluation Malnutrition Findings (Please click <Entered> for more info): Nutritional Asmnt/Malnutrition Start: 09/27/19 15: 12 Text: Status: Complete Freq: Protocol: Document 09/27/19 15:33 MAHIN (Rec: 09/27/19 15:35 MAHIN [id number]) Nutritional Asmnt/Malnutrition Patient General Information Nutritional Screening Low Risk Consult Diagnosis Psychosis Pertinent Medical Hx/Surgical Hx GERD, Allergic Rhinitis, Osteoarthritis, Asthma Subjective Information Consult: Intertrigo/Wound Gluteal Sulcus and Gluten Free Dietary Restrictions Pt is a 69-year-old female admitted on 09/25 d/t depression, suicidal ideations . Pt ate 100% meals 09/26. Visited pt around lunch and noticed she only drank her milk. Pt stated she was not hungry at lunch as she ate her breakfast late d/t medication issues and stomach upset. Pt stated she needed some antacids. Talked with pt regarding her dietary restrictions related to Gluten , she understood well, needed no further education. I informed her we made her some Gluten-Free sandwiches if she needed an extra snack between meals. Pt held conversation fine, stated she would eat when her stomach settled, she ate 75% breakfast. Per wound care note (09/27), Extrinsic factors that delay wound healing: Decreased mobility. Gluteal Sulcus Wound is not open, Intertrigo with erythema and moisture associated skin damage, present on admission. Open area has 100% dark pink tissue . Pt weight charted as 109 Lb, the pt looked heavier upon observation when I visited her today. Asked nurse to reweigh pt for accurate estimation of nutritional needs, pt refused, conscious of being overweight. I went in and spoke with pt, she stated she estimates she is around 190 Lbs based on most recent weight check. Will try to reweigh again when pt feels more comfortable. Anthropometrics (based on pt recollection) HT: 53 WT: 190 LB (86.36 kg) ABW: 135 LB (60.80 kg) BMI: 33.7 (Obese) GI/ Skin Integrity GI: WNL, Soft, Round BM: 09/26 x1 I/O: 1060/Not Noted Skin: Rash, Redness Ludwin: 20 Diet Order: Regular Allergy: Gluten Estimated Energy Needs: ( Geriatric, ABW) 5666-5801 kcals (20-25 kcals/ kg) 50-60g Pro (0.8-1.0 g/kg) 0633-8678 ml (20-25 ml/kg) Current Diet Order/ Nutrition Support Regular Patient / S.O Can Pertinent Medications Albuterol (PRN), tums, Oscal with Vitamin D, Zofran Odt ( PRN), Protonix Pertinent Labs 09/22: BUN/Cr 6/0.3, AST 32 Nutritional Hx/Data Height 1.6 m Height (Calculated Centimeters) 160.0 Current Weight (lbs) 86.183 kg Weight (Calculated Kilograms) 86.2 Weight (Calculated Grams) 29763.6 [place] Body Weight 115 LB (52.27 kg) % [place] Body Weight 165 Body Mass Index (BMI) 33.6 Weight Status Obese GI Symptoms Last BM 09/26 x1 Usual diet at home Regular Skin Integrity/Comment: Skin: Rash, Redness Ludwin: 20 Per wound care note (09/27), Extrinsic factors that delay wound healing: Decreased mobility. Gluteal Sulcus Wound is not open, Intertrigo with erythema and moisture associated skin damage, present on admission. Open area has 100% dark pink tissue . Current %PO Fair (50-74%) Estimated Nutritional Goals BEE in Kcals: Adj wt of IBW Calories/Kcals/Kg 20-25 Kcals Calculated 4328-7326 Protein: Adj wt of IBW Protein g/k.8-1.0 Protein Calculated 50-60 Fluid: ml 7289-5519 ml (20-25 ml/kg) Nutritional Problem 1. Problem Problem Obesity Etiology r/t consistent energy overconsumption Signs/Symptoms: aeb BMI 33.7 (pt recollection) . Malnutrition Related to Morbid Obesity Malnutrition related to morbid obesity No Intervention/Recommendation Comments Continue Regular diet as tolerated. Expected Outcomes/Goals Expected Outcomes/Goals 1.PO intake to meet 75% of estimated nutritional needs. 2.Monitor PO intake, wt, nutrition related labs, and skin integrity to trend WNL. 3.F/U as low risk in 7-10 days , 10/03-10/06
--- NOTE | 2019-10-13 17:59 | Discharge Summary ---
DATE OF DISCHARGE: 10/13/2019 PSYCHIATRIC DISCHARGE SUMMARY IDENTIFYING DATA: The patient is a 69-year-old woman, resident of an independent living. JUSTIFICATION OF HOSPITALIZATION: The patient is admitted on a 5150 as a danger to self. CHIEF COMPLAINT: "I'm feeling depressed, I' am suicidal, I wanted to run in front of the moving vehicles to kill myself." DIAGNOSES AT THE TIME OF ADMISSION: AXIS I: Major depressive disorder, recurrent and severe. AXIS II: None. AXIS III: As per Dr. Seay. HISTORY OF PRESENT ILLNESS: Please refer to the 09/26/2019 dictation done by me. HOSPITAL COURSE AND RESPONSE TO TREATMENT: The patient has been observed on inpatient unit. Provided with supportive psychotherapy. The patient has been closely monitored. I encouraged to participate in groups and verbalize the concerns. The patient has been started on the Paxil that was given up to 40 mg and the patient also has been placed on trazodone 100 mg at bedtime and with these medications, the patient has been observed and the patient started to do fairly well and the patient was finally discharged on 10/13/2019 with recommendation that she is going to be seeking treatment on an outpatient basis at [place]. MENTAL STATUS EXAMINATION AT THE TIME OF ADMISSION: The patient's mood is noted to be anxious. Affect is appropriate. The patient is not suicidal or homicidal. No psychotic symptoms are noted. The patient is motivated to seek treatment. MENTAL STATUS EXAMINATION AT THE TIME OF DISCHARGE: Noted to be stable. The patient is not presenting with any threats to harm self or others at the time of the discharge. CONDITION AT THE TIME OF DISCHARGE: Noted to be stable. DIAGNOSES AT THE TIME OF DISCHARGE: AXIS I: Major depressive disorder, recurrent and moderate. AXIS II: None. AXIS III: Hypertension. AFTERCARE PLAN: The patient is discharged to be followed up on an outpatient basis. JOB# [id number]
[2019-10-14] MEDS: Pantoprazole 40 mg EC Tab PO SCH (06:33)
[2019-10-14] MEDS: NYSTATIN 100000 UNITS/GM POWD TP SCH (08:36)
[2019-10-14] MEDS: Fluticasone Propionate Nasal 1 SPR SPR NS SCH (08:36)
[2019-10-14] MEDS: Calcium Carb/Vit D 500 mg/200 U Tab PO SCH (08:36)
[2019-10-14] MEDS: Menthol/Zinc Oxide Oint 113gm Tube TP PRN (08:37)
--- NOTE | 2019-10-14 12:19 | Internal Medicine Prog Note ---
Internal Medicine Subjective - Subjective Patient seen and examined:: with staff, chart reviewed Patient is:: awake, verbal, interactive, in bed, denies any new complaints Patient Complaints of:: congestion Per staff patient has:: no adverse event, no episodes of fall, tolerating meds Internal Medicine Objective - Physical Exam Vitals and I&O: Vital Signs Temp 97.4 F 10/13/19 21:52 Pulse 86 10/13/19 21:52 Resp 17 10/14/19 08:00 BP 127/73 10/13/19 21:52 Pulse Ox 92 10/13/19 21:52 Intake & Output 10/13/19 10/14/19 10/14/19 18:59 06:59 18:59 Intake Total 1440 120 120 Balance 1440 120 120 Intake: Oral 1080 120 120 Other 360 Other: # Voids 4 2 2 # Bowel Movements 0 3 0 Active Medications: Current Medications Acetaminophen (Tylenol) 650 mg PO Q4H PRN PRN Reason: Pain (Moderate 4-6) Stop: 11/25/19 14:38 Last Admin: 10/11/19 17:25 Dose: 650 mg Albuterol Sulfate (Albuterol 2.5mg/3ml Neb Ud) 2.5 mg HHN Q6HR PRN PRN Reason: Wheezing Stop: 11/24/19 23:02 Ascorbic Acid (Vitamin C) 500 mg PO DAILY EDDIE Stop: 12/11/19 08:59 Last Admin: 10/14/19 08:36 Dose: 500 mg Calamine/Phenol (Calmoseptine) 1 appl TP QID PRN PRN Reason: Skin Irritation Stop: 11/26/19 13:26 Last Admin: 10/14/19 08:37 Dose: 1 appl Calcium Carbonate (Tums) 500 mg PO TID PRN PRN Reason: GI DISTRESS Stop: 11/25/19 20:59 Last Admin: 10/02/19 21:12 Dose: 500 mg Calcium/Vitamin D (Oscal W/Vitamin D) 1 tab PO BID EDDIE Stop: 11/25/19 16:59 Last Admin: 10/14/19 08:36 Dose: 1 tab Fluticasone Propionate (Flonase) 2 spr NS DAILY EDDIE Stop: 11/26/19 08:59 Last Admin: 10/14/19 08:36 Dose: 2 spr Hydrocortisone (Hydrocortisone 1%) 1 appl TP DAILY EDDIE Stop: 11/30/19 08:59 Last Admin: 10/14/19 08:38 Dose: 1 appl Loratadine (Claritin) 10 mg PO DAILY EDDIE Stop: 11/25/19 08:59 Last Admin: 10/14/19 08:36 Dose: 10 mg Lorazepam (Ativan) 0.5 mg PO Q6HR PRN; Protocol PRN Reason: Agitation Stop: 11/24/19 23:02 Last Admin: 10/13/19 16:59 Dose: 0.5 mg Magnesium Hydroxide (Milk Of Magnesia) 30 ml PO DAILY PRN PRN Reason: Constipation Stop: 12/03/19 13:14 Last Admin: 10/04/19 13:43 Dose: 30 ml Nystatin (Nystop) 100,000 units TP BID EDDIE Stop: 11/26/19 08:59 Last Admin: 10/14/19 08:36 Dose: 100,000 units Ondansetron HCl (Zofran Odt) 4 mg PO Q8HR PRN PRN Reason: Nausea Stop: 11/24/19 23:02 Last Admin: 10/03/19 08:46 Dose: 4 mg Pantoprazole Sodium (Protonix) 40 mg PO QDAC EDDIE Stop: 11/26/19 07:29 Last Admin: 10/14/19 06:33 Dose: 40 mg Paroxetine HCl (Paxil) 40 mg PO DAILY [facility]DIE; Protocol Stop: 11/25/19 08:59 Last Admin: 10/14/19 08:36 Dose: 40 mg Trazodone HCl (Desyrel) 100 mg PO HS EDDIE; Protocol Stop: 11/25/19 20:59 Last Admin: 10/13/19 21:51 Dose: 100 mg General: alert, obese HEENT: NC/AT, PERRLA, EOMI Neck: Supple, No JVD, No thyromegaly Lungs: CTAB Cardiovascular: RRR, Normal S1, Normal S2 Abdomen: soft, non-tender, globular, positive bowel sound Extremities: excoriation Neurological: no change Internal Medicine Assmt/Plan - Assessment Assessment: obesity gerd allergic rhinitis oa - Plan Plan: cont on adequate pain rx cont on ppi cont on histamine johanne cpm dw rn cxr - Nutritional Asmnt/Malnutr-PDOC - Dietary Evaluation Malnutrition Findings (Please click <Entered> for more info): Nutritional Asmnt/Malnutrition Start: 09/27/19 15: 12 Text: Status: Complete Freq: Protocol: Document 09/27/19 15:33 MAHIN (Rec: 09/27/19 15:35 MAHIN [id number]) Nutritional Asmnt/Malnutrition Patient General Information Nutritional Screening Low Risk Consult Diagnosis Psychosis Pertinent Medical Hx/Surgical Hx GERD, Allergic Rhinitis, Osteoarthritis, Asthma Subjective Information Consult: Intertrigo/Wound Gluteal Sulcus and Gluten Free Dietary Restrictions Pt is a 69-year-old female admitted on 09/25 d/t depression, suicidal ideations . Pt ate 100% meals 09/26. Visited pt around lunch and noticed she only drank her milk. Pt stated she was not hungry at lunch as she ate her breakfast late d/t medication issues and stomach upset. Pt stated she needed some antacids. Talked with pt regarding her dietary restrictions related to Gluten , she understood well, needed no further education. I informed her we made her some Gluten-Free sandwiches if she needed an extra snack between meals. Pt held conversation fine, stated she would eat when her stomach settled, she ate 75% breakfast. Per wound care note (09/27), Extrinsic factors that delay wound healing: Decreased mobility. Gluteal Sulcus Wound is not open, Intertrigo with erythema and moisture associated skin damage, present on admission. Open area has 100% dark pink tissue . Pt weight charted as 109 Lb, the pt looked heavier upon observation when I visited her today. Asked nurse to reweigh pt for accurate estimation of nutritional needs, pt refused, conscious of being overweight. I went in and spoke with pt, she stated she estimates she is around 190 Lbs based on most recent weight check. Will try to reweigh again when pt feels more comfortable. Anthropometrics (based on pt recollection) HT: 53 WT: 190 LB (86.36 kg) ABW: 135 LB (60.80 kg) BMI: 33.7 (Obese) GI/ Skin Integrity GI: WNL, Soft, Round BM: 09/26 x1 I/O: 1060/Not Noted Skin: Rash, Redness Ludwin: 20 Diet Order: Regular Allergy: Gluten Estimated Energy Needs: ( Geriatric, ABW) 8224-6057 kcals (20-25 kcals/ kg) 50-60g Pro (0.8-1.0 g/kg) 6732-2200 ml (20-25 ml/kg) Current Diet Order/ Nutrition Support Regular Patient / S.O Can Pertinent Medications Albuterol (PRN), tums, Oscal with Vitamin D, Zofran Odt ( PRN), Protonix Pertinent Labs 09/22: BUN/Cr 6/0.3, AST 32 Nutritional Hx/Data Height 1.6 m Height (Calculated Centimeters) 160.0 Current Weight (lbs) 86.183 kg Weight (Calculated Kilograms) 86.2 Weight (Calculated Grams) 44459.6 [place] Body Weight 115 LB (52.27 kg) % [place] Body Weight 165 Body Mass Index (BMI) 33.6 Weight Status Obese GI Symptoms Last BM 09/26 x1 Usual diet at home Regular Skin Integrity/Comment: Skin: Rash, Redness Ludwin: 20 Per wound care note (09/27), Extrinsic factors that delay wound healing: Decreased mobility. Gluteal Sulcus Wound is not open, Intertrigo with erythema and moisture associated skin damage, present on admission. Open area has 100% dark pink tissue . Current %PO Fair (50-74%) Estimated Nutritional Goals BEE in Kcals: Adj wt of IBW Calories/Kcals/Kg 20-25 Kcals Calculated 7543-8079 Protein: Adj wt of IBW Protein g/k.8-1.0 Protein Calculated 50-60 Fluid: ml 8608-7076 ml (20-25 ml/kg) Nutritional Problem 1. Problem Problem Obesity Etiology r/t consistent energy overconsumption Signs/Symptoms: aeb BMI 33.7 (pt recollection) . Malnutrition Related to Morbid Obesity Malnutrition related to morbid obesity No Intervention/Recommendation Comments Continue Regular diet as tolerated. Expected Outcomes/Goals Expected Outcomes/Goals 1.PO intake to meet 75% of estimated nutritional needs. 2.Monitor PO intake, wt, nutrition related labs, and skin integrity to trend WNL. 3.F/U as low risk in 7-10 days , 10/03-10/06
== END 2019-10-14 12:00 | disposition home or self-care (01) | DRG 885 ==
LOC: GERO 21:00
PROVIDERS: ADMIT Psychiatry & Neurology Psychiatry; ATTEND Psychiatry & Neurology Psychiatry
DX: F33.2 Major depressive disorder, recurrent severe without psychotic features (principal); Z68.1 Body mass index [BMI] 19.9 or less, adult; E66.9 Obesity, unspecified; K21.9 Gastro-esophageal reflux disease without esophagitis; M19.90 Unspecified osteoarthritis, unspecified site; J30.9 Allergic rhinitis, unspecified
CPT/HCPCS: 71045-TC; 83036-90; G0410; Q0162; Z7610